=== PATIENT | male | born 1965 | race African-American/Black ===

== ENCOUNTER 2016-12-09 15:27 | Inpatient (IN) | payer MEDICAID, OTHER ==
[~2016-12-09] VITALS: Ht 193 cm; Wt 69.9 kg
[2016-12-09] VITALS (27 sets, daily range): BP systolic 102–180; BP diastolic 56–82
[2016-12-09] MEDS ORDERED: MORPHINE SULFATE 4 MG/ML CPJ (NOT FOR IM USE) IV STA (15:42)
[2016-12-09] MEDS ORDERED: ONDANSETRON HCL 4MG/2ML VIAL IV STA (15:42)
[2016-12-09] MEDS ORDERED: NITROGLYCERIN OINT 1GM/INCH UDPKT TD STA (15:42)
[2016-12-09] MEDS ORDERED: SODIUM CHLORIDE 0.9% 1,000 ML IV ONE ×3 (15:42→16:17)
[2016-12-09 16:13] LABS: BG BASE EXCESS -22.6 mmol/L (-2.0-2.0); BG CARBOXYHEMOGLOBIN 0.6 % (0.5-1.5); BG FRACTION INSPIRED OXYGEN 21; BG HCO3 ACT 4.6 mmol/L (22.0-26.0); BG METHEMOGLOBIN 0.2 % (0.0-1.5); BG OXYHEMOGLOBIN 97.2 % (94.0-97.0); BG PCO2 14.7 mmHg (35.0-45.0); BG PH 7.113 (7.350-7.450); BG PO2 129.2 mmHg (75.0-100.0); BG SAMPLE SITE RIGHT BRACHIAL; BG TOTAL HEMOGLOBIN 14.3 g/dL (12.0-18.0); BG VENT MODE ROOM AIR
[2016-12-09] MEDS ORDERED: INSULIN REGULAR (DRIP) 100 UNITS in SODIUM CHLORIDE 0.9% 100 ML IV ONE (16:15)
[2016-12-09] MEDS ORDERED: AZITHROMYCIN 500 MG in DEXT 5% WATER 250 ML IV STA (16:17)
[2016-12-09 16:22] LABS: BASOPHILS % 0.5 % (0.0-2.0); HEMATOCRIT. 45.3 % (42.0-52.0); LYMPHOCYTES % 12.9 % (20.0-50.0); MEAN CORPUSCULAR HEMOGLOBIN 28.3 pg (28.0-32.0); MEAN CORPUSCULAR VOLUME 91.6 fL (80.0-94.0); MEAN PLATELET VOLUME 10.4 fl (7.4-10.4); MONOCYTES % 6.5 % (2.0-8.0); NEUTROPHILS % 80.1 % (40.0-76.0); PLATELET 289 x1000/uL (130-400); RED BLOOD CELL COUNT 4.95 mill/uL (4.7-6.1); RED CELL DISTRIBUTION WIDTH 16.9 % (11.6-14.6)
[2016-12-09 16:29] LABS: PARTIAL THROMBOPLASTIN TIME 23.1 sec (23.4-31.0); PROTHROMBIN TIME 10.4 sec (9.4-11.6)
[2016-12-09] MEDS ORDERED: CEFTRIAXONE 1 G PREMIX 50 ML IV ONE (16:30)
[2016-12-09] MEDS ORDERED: INSULIN REGULAR (DRIP) 100 UNITS in SODIUM CHLORIDE 0.9% 100 ML IV NR (16:30)
[2016-12-09 17:02] LABS: CLARITY URINE CLEAR (CLEAR); COLOR URINE YELLOW (YELLOW); GLUCOSE URINE 3+ (NEGATIVE); KETONES URINE 4+ (NEGATIVE); LEUKOCYTE ESTERASE URINE NEGATIVE (NEGATIVE); NITRITE URINE NEGATIVE (NEGATIVE); OCCULT BLOOD URINE TRACE (NEGATIVE); PROTEIN URINE 1+ (NEGATIVE); SPECIFIC GRAVITY URINE 1.025 (1.005-1.030); UROBILINOGEN URINE 0.2 E.U./dL (0.2-1.0)
[2016-12-09 17:15] LABS: *AMPHETAMINES SCREEN URINE NEGATIVE (NEGATIVE); *BARBITURATES SCREEN URINE NEGATIVE (NEGATIVE); *BENZODIAZEPINES SCREEN URINE NEGATIVE (NEGATIVE); *COCAINE SCREEN URINE PRESUMTIVE POSITIVE (NEGATIVE); CANNABINOID URINE SCREEN NEGATIVE (NEGATIVE); METHADONE URINE SCREEN NEGATIVE (NEGATIVE); OPIATES URINE SCREEN NEGATIVE (NEGATIVE); PHENCYCLIDINE URINE SCREEN NEGATIVE (NEGATIVE)
[2016-12-09 17:22] LABS: CHLORIDE 98 mEq/L (98-107)
[2016-12-09 17:29] LABS: PHOSPHORUS 6.2 mg/dL (2.5-4.9); TROPONIN I < 0.02 ng/mL (0.00-0.04)
[2016-12-09 17:30] LABS: CREATINE KINASE 126 IU/L (39-308); CREATINE KINASE MB FRACTION 2.9 ng/mL (0.5-3.6)
[2016-12-09 17:38] LABS: CARBON DIOXIDE 9 mEq/L (21-32)
[2016-12-09 18:04] LABS: BETA HYDROXYBUTYRATE 14.8 mMol/L (0.0-0.3)
[2016-12-09] MEDS: SODIUM CHLORIDE 0.9% 1,000 ML IV SCH ×2 (18:30→23:15)
[2016-12-09] MEDS ORDERED: INSULIN REGULAR (DRIP) 100 UNITS in SODIUM CHLORIDE 0.9% 99 ML IV PRN (18:30)
[2016-12-09] MEDS ORDERED: ONDANSETRON HCL 4MG/2ML VIAL IV PRN (18:30)
[2016-12-09] MEDS ORDERED: MORPHINE SULFATE 4 MG/ML CPJ (NOT FOR IM USE) IV PRN (18:45)
[2016-12-09] MEDS: BLOOD SUGAR DIAGNOSTIC STRIP TEST SCH ×3 (20:40→23:16)
[2016-12-10] VITALS (67 sets, daily range): BP systolic 74–133; BP diastolic 49–95
[2016-12-10] MEDS: BLOOD SUGAR DIAGNOSTIC STRIP TEST SCH ×15 (00:54→14:18)
[2016-12-10 01:06] LABS: CHLORIDE 111 mEq/L (98-107)
[2016-12-10 01:15] LABS: CARBON DIOXIDE 18 mEq/L (21-32)
[2016-12-10] MEDS: DEXT 5%/0.45% NACL KCL 20MEQ/L 1,000 ML IV SCH ×2 (02:45→10:07)
[2016-12-10 06:03] LABS: CARBON DIOXIDE 16 mEq/L (21-32); CHLORIDE 108 mEq/L (98-107)
[2016-12-10] MEDS ORDERED: PANTOPRAZOLE SODIUM 40 MG/VIAL IV SCH (09:00)
[2016-12-10 11:00] LABS: CARBON DIOXIDE 24 mEq/L (21-32); CHLORIDE 106 mEq/L (98-107)
[2016-12-10] MEDS ORDERED: DEXTROSE 50% WATER 50ML SYRINGE IV PRN (14:30)
[2016-12-10] MEDS: INSULIN LISPRO 100 UNITS/ML SUBCUT SCH ×2 (14:55→17:21)
[2016-12-10] MEDS ORDERED: BLOOD SUGAR DIAGNOSTIC STRIP TEST SCH (16:30)
== END 2016-12-10 18:00 | disposition home or self-care (01) | DRG 420 ==
LOC: ER 15:41 → EDBEDREQSVC 16:15 → EDBEDREQ 16:16 → MICUNO 16:29 → EDBEDREQ 16:30 → EDBEDREQTM 16:30 → ENRESERV 16:40
PROVIDERS: ADMIT Internal Medicine; ATTEND Internal Medicine
DX: E10.10 Type 1 diabetes mellitus with ketoacidosis without coma (principal); E43 Unspecified severe protein-calorie malnutrition; F17.210 Nicotine dependence, cigarettes, uncomplicated; Z60.2 Problems related to living alone; Z91.19 Patient's noncompliance with other medical treatment and regimen; Z79.4 Long term (current) use of insulin; Z68.1 Body mass index [BMI] 19.9 or less, adult
CPT/HCPCS: 36415; 36600; 71010; 80048; 80053; 80305; 81001; 82010; 82375; 82550; 82553; 82805; 82962; 83605; 83690; 83735; 83880; 84100; 84484; 85025; 85610; 85730; 87040; 87086; 93005; 96361; 96374; 96375; 99291; C9113; J0456; J0696; J1815; J2270; J2405; J7030; J7050; J7060

== ENCOUNTER 2017-03-16 15:10 | Emergency (ER) | payer MEDICAID ==
[~2017-03-16] VITALS: Ht 177.8 cm; Wt 70.0 kg
[2017-03-16] MEDS ORDERED: SODIUM CHLORIDE 0.9% 1,000 ML IV ONE (17:50)
[2017-03-16 18:33] LABS: BASOPHILS % 0.5 % (0.0-2.0); EOSINOPHILS % 0.4 % (0.0-5.0); HEMATOCRIT. 48.6 % (42.0-52.0); HEMOGLOBIN. 15.9 g/dL (14.0-18.0); LYMPHOCYTES % 11.6 % (20.0-50.0); MEAN CORPUSCULAR HEMOGLOBIN 28.9 pg (28.0-32.0); MEAN CORPUSCULAR VOLUME 88.5 fL (80.0-94.0); MEAN PLATELET VOLUME 9.3 fl (7.4-10.4); MONOCYTES % 3.6 % (2.0-8.0); NEUTROPHILS % 83.9 % (40.0-76.0); PLATELET 318 x1000/uL (130-400); RED BLOOD CELL COUNT 5.49 mill/uL (4.7-6.1); RED CELL DISTRIBUTION WIDTH 13.1 % (11.6-14.6)
[2017-03-16 18:34] LABS: CLARITY URINE CLEAR (CLEAR); COLOR URINE YELLOW (YELLOW); KETONES URINE TRACE (NEGATIVE); LEUKOCYTE ESTERASE URINE NEGATIVE (NEGATIVE); NITRITE URINE NEGATIVE (NEGATIVE); OCCULT BLOOD URINE NEGATIVE (NEGATIVE); PH URINE 5.5 (4.5-8.0); PROTEIN URINE TRACE (NEGATIVE); SPECIFIC GRAVITY URINE 1.042 (1.005-1.030); UROBILINOGEN URINE 0.2 E.U./dL (0.2-1.0)
[2017-03-16 18:47] LABS: CHLORIDE 101 mEq/L (98-107)
[2017-03-16 18:48] LABS: AMYLASE 69 IU/L (25-115); BETA HYDROXYBUTYRATE 1.7 mMol/L (0.0-0.3)
[2017-03-16 18:50] LABS: *AMPHETAMINES SCREEN URINE NEGATIVE (NEGATIVE); *BARBITURATES SCREEN URINE NEGATIVE (NEGATIVE); *BENZODIAZEPINES SCREEN URINE NEGATIVE (NEGATIVE); *COCAINE SCREEN URINE PRESUMTIVE POSITIVE (NEGATIVE); CANNABINOID URINE SCREEN NEGATIVE (NEGATIVE); METHADONE URINE SCREEN NEGATIVE (NEGATIVE); OPIATES URINE SCREEN NEGATIVE (NEGATIVE); PHENCYCLIDINE URINE SCREEN NEGATIVE (NEGATIVE)
[2017-03-16] MEDS ORDERED: INSULIN REGULAR (HUMULIN R) 300UNITS/3ML SUBCUT ONE (20:45)
[2017-03-16] MEDS ORDERED: INSULIN REGULAR (HUMULIN R) 300UNITS/3ML IV ONE (20:45)
[2017-03-16 21:49] LABS: BG BASE EXCESS 0.1 mmol/L (-2.0-2.0); BG CARBOXYHEMOGLOBIN 1.2 % (0.5-1.5); BG DEOXYHEMOGLOBIN 3.1 % (0.0-5.0); BG FRACTION INSPIRED OXYGEN 21; BG HCO3 ACT 23.9 mmol/L (22.0-26.0); BG METHEMOGLOBIN 0.4 % (0.0-1.5); BG OXYGEN SATURATION 96.8 % (92.0-98.5); BG OXYHEMOGLOBIN 95.3 % (94.0-97.0); BG PCO2 36.4 mmHg (35.0-45.0); BG PH 7.435 (7.350-7.450); BG PO2 81.8 mmHg (75.0-100.0); BG SAMPLE SITE RIGHT BRACHIAL; BG TOTAL HEMOGLOBIN 15.7 g/dL (12.0-18.0); BG VENT MODE ROOM AIR
[2017-03-16 23:10] VITALS: BP 122/76
== END 2017-03-16 23:10 | disposition home or self-care (01) ==
LOC: ER 15:18
DX: E11.10 Type 2 diabetes mellitus with ketoacidosis without coma (principal); Z79.4 Long term (current) use of insulin; Z91.19 Patient's noncompliance with other medical treatment and regimen
CPT/HCPCS: 36415; 36600; 71045; 80053; 80305; 81001; 82010; 82150; 82375; 82805; 82962; 83690; 85025; 93005; 96361; 96372; 96374; 99285; J1815; J7030

== ENCOUNTER 2017-03-16 23:44 | Emergency (ER) | payer MEDICAID ==
[~2017-03-16] VITALS: Ht 193 cm; Wt 82.0 kg
[2017-03-17 09:17] VITALS: BP 117/88
== END 2017-03-17 09:18 | disposition home or self-care (01) ==
LOC: ER 23:44
DX: E11.65 Type 2 diabetes mellitus with hyperglycemia (principal)
CPT/HCPCS: 82962; 99283

== ENCOUNTER 2018-05-08 14:44 | Inpatient (IN) | payer MEDICAID ==
[~2018-05-08] VITALS: Ht 193 cm; Wt 83.9 kg
[2018-05-08] MEDS ORDERED: SODIUM CHLORIDE 0.9% 1,000 ML IV ONE (15:37)
[2018-05-08 16:08] LABS: BASOPHILS % 0.5 % (0.0-2.0); HEMATOCRIT. 37.1 % (42.0-52.0); HEMOGLOBIN. 11.4 g/dL (14.0-18.0); LYMPHOCYTES % 9.3 % (20.0-50.0); MEAN CORPUSCULAR HEMOGLOBIN 29.4 pg (28.0-32.0); MEAN CORPUSCULAR VOLUME 95.6 fL (80.0-94.0); MEAN PLATELET VOLUME 9.4 fl (7.4-10.4); MONOCYTES % 5.5 % (2.0-8.0); NEUTROPHILS % 84.7 % (40.0-76.0); PLATELET 343 x1000/uL (130-400); RED BLOOD CELL COUNT 3.88 mill/uL (4.7-6.1); RED CELL DISTRIBUTION WIDTH 17.2 % (11.6-14.6)
[2018-05-08 16:13] LABS: CHLORIDE 94 mEq/L (98-107); PROTHROMBIN TIME 10.5 sec (9.1-11.1)
[2018-05-08 16:25] LABS: BETA HYDROXYBUTYRATE 9.1 mMol/L (0.0-0.3)
[2018-05-08] MEDS ORDERED: INSULIN REGULAR (DRIP) 100 UNITS in SODIUM CHLORIDE 0.9% 100 ML IV ONE (16:29)
[2018-05-08] MEDS ORDERED: SODIUM CHLORIDE 0.9% 1,000 ML IV STA (16:29)
[2018-05-08] MEDS ORDERED: FUROSEMIDE 100MG/10ML VIAL IV ONE (16:30)
[2018-05-08] MEDS ORDERED: ALBUTEROL (0.083%) 2.5MG/3ML NEB HHN SCH (16:30)
[2018-05-08] MEDS ORDERED: SODIUM POLYSTYRENE SULFONATE 15 G/60 ML BOT PO ONE (16:30)
[2018-05-08] MEDS ORDERED: CALCIUM GLUCONATE 1,000 MG in DEXT 5% WATER 100 ML IV NR (17:00)
[2018-05-08 17:10] LABS: CLARITY URINE CLEAR (CLEAR); COLOR URINE YELLOW (YELLOW); KETONES URINE 3+ (NEGATIVE); LEUKOCYTE ESTERASE URINE NEGATIVE (NEGATIVE); NITRITE URINE NEGATIVE (NEGATIVE); OCCULT BLOOD URINE NEGATIVE (NEGATIVE); PROTEIN URINE NEGATIVE (NEGATIVE); SPECIFIC GRAVITY URINE 1.025 (1.005-1.030); UROBILINOGEN URINE 0.2 E.U./dL (0.2-1.0)
[2018-05-08 18:10] LABS: BG BASE EXCESS -20.4 mmol/L (-2.0-2.0); BG CARBOXYHEMOGLOBIN 1.1 % (0.5-1.5); BG FRACTION INSPIRED OXYGEN 21; BG HCO3 ACT 6.9 mmol/L (22.0-26.0); BG METHEMOGLOBIN 0.4 % (0.0-1.5); BG OXYHEMOGLOBIN 95.5 % (94.0-97.0); BG PCO2 21.4 mmHg (35.0-45.0); BG PH 7.129 (7.350-7.450); BG PO2 112.2 mmHg (75.0-100.0); BG SAMPLE SITE RIGHT RADIAL; BG TOTAL HEMOGLOBIN 13.1 g/dL (12.0-18.0); BG VENT MODE ROOM AIR
[2018-05-08 18:21] LABS: CHLORIDE 101 mEq/L (98-107)
[2018-05-08 18:27] LABS: PHOSPHORUS 6.8 mg/dL (2.5-4.9)
[2018-05-08] MEDS ORDERED: ACETAMINOPHEN 325MG TABLET PO PRN (18:30)
[2018-05-08] MEDS ORDERED: IPRATROPIUM/ALBUTEROL 0.5-3(2.5)MG/3ML NEB INH PRN (18:30)
[2018-05-08] MEDS ORDERED: CLONIDINE 0.1MG TABLET PO PRN (18:30)
[2018-05-08] MEDS ORDERED: INSULIN REGULAR (DRIP) 100 UNITS in SODIUM CHLORIDE 0.9% 100 ML IV SCH (18:30)
[2018-05-08] MEDS ORDERED: ONDANSETRON HCL 4MG/2ML INJ IV PRN (18:30)
[2018-05-08] MEDS ORDERED: DOCUSATE SODIUM 100MG CAPSULE PO PRN (18:30)
[2018-05-08 19:35] LABS: FOLIC ACID (FOLATE) SERUM >20 ng/mL ng/mL (>5.38)
[2018-05-08 19:37] LABS: FERRITIN 75 ng/mL (22-322)
[2018-05-08 19:44] LABS: CREATINE KINASE MB FRACTION 2.4 ng/mL (0.5-3.6)
[2018-05-08 19:47] LABS: VITAMIN B12 SERUM 461 pg/mL (211-911)
[2018-05-08 21:25] LABS: CHLORIDE 104 mEq/L (98-107)
[2018-05-08 21:30] LABS: PHOSPHORUS 3.8 mg/dL (2.5-4.9)
[2018-05-08 23:29] LABS: CHLORIDE 104 mEq/L (98-107)
[2018-05-09] MEDS ORDERED: LORAZEPAM 0.5MG TABLET PO PRN (00:50)
[2018-05-09] MEDS ORDERED: INSULIN GLARGINE UD 100 UNITS/ML SYR SUBCUT SCH ×2 (01:00→22:00)
[2018-05-09] MEDS ORDERED: DEXTROSE 50% WATER 50ML SYRINGE IV PRN (01:00)
[2018-05-09 05:30] VITALS: BP 112/67
[2018-05-09 06:00] VITALS: BP_SYST 112
[2018-05-09] MEDS: HYDROCODONE/ACETAMINOPHEN 5/325MG TABLET PO PRN ×2 (08:03→21:10)
[2018-05-09 08:16] LABS: *BENZODIAZEPINES SCREEN URINE NEGATIVE (NEGATIVE); *COCAINE SCREEN URINE PRESUMTIVE POSITIVE (NEGATIVE); METHADONE URINE SCREEN NEGATIVE (NEGATIVE); OPIATES URINE SCREEN NEGATIVE (NEGATIVE); PHENCYCLIDINE URINE SCREEN NEGATIVE (NEGATIVE)
[2018-05-09] MEDS: INSULIN LISPRO (HIGH DOSE) 100 UNITS/ML SUBCUT SCH ×4 (08:16→21:19)
[2018-05-09 08:17] LABS: *AMPHETAMINES SCREEN URINE NEGATIVE (NEGATIVE); *BARBITURATES SCREEN URINE NEGATIVE (NEGATIVE); CANNABINOID URINE SCREEN NEGATIVE (NEGATIVE)
[2018-05-09 08:59] LABS: BASOPHILS % 0.7 % (0.0-2.0); EOSINOPHILS % 0.5 % (0.0-5.0); HEMATOCRIT. 34.2 % (42.0-52.0); HEMOGLOBIN. 11.1 g/dL (14.0-18.0); LYMPHOCYTES % 24.7 % (20.0-50.0); MEAN CORPUSCULAR HEMOGLOBIN 28.7 pg (28.0-32.0); MEAN CORPUSCULAR VOLUME 88.6 fL (80.0-94.0); MEAN PLATELET VOLUME 9.2 fl (7.4-10.4); MONOCYTES % 8.3 % (2.0-8.0); NEUTROPHILS % 65.8 % (40.0-76.0); PLATELET 330 x1000/uL (130-400); RED BLOOD CELL COUNT 3.86 mill/uL (4.7-6.1); RED CELL DISTRIBUTION WIDTH 16.2 % (11.6-14.6)
[2018-05-09] MEDS: BLOOD SUGAR DIAGNOSTIC STRIP TEST SCH ×3 (12:00→20:00)
[2018-05-09] MEDS: SODIUM CHLORIDE 0.9% 1,000 ML IV SCH ×3 (15:30→23:30)
[2018-05-09] MEDS: ARIPIPRAZOLE 10MG TABLET PO SCH (17:44)
[2018-05-09 20:00] VITALS: BP 113/78
[2018-05-09] MEDS: QUETIAPINE FUMARATE 25MG TABLET PO SCH (21:10)
[2018-05-09] MEDS: INSULIN GLARGINE UD 100 UNITS/ML SYR SUBCUT SCH (21:20)
[2018-05-10] VITALS (8 sets, daily range): BP systolic 112–150; BP diastolic 67–84
[2018-05-10] MEDS: SODIUM CHLORIDE 0.9% 1,000 ML IV SCH ×2 (04:17→13:23)
[2018-05-10] MEDS: INSULIN LISPRO (HIGH DOSE) 100 UNITS/ML SUBCUT SCH ×6 (04:22→20:00)
[2018-05-10] MEDS: BLOOD SUGAR DIAGNOSTIC STRIP TEST SCH ×6 (04:23→20:54)
[2018-05-10] MEDS: HYDROCODONE/ACETAMINOPHEN 5/325MG TABLET PO PRN ×3 (04:51→21:32)
[2018-05-10 06:30] LABS: BASOPHILS % 0.9 % (0.0-2.0); EOSINOPHILS % 0.9 % (0.0-5.0); HEMATOCRIT. 33.1 % (42.0-52.0); HEMOGLOBIN. 10.8 g/dL (14.0-18.0); LYMPHOCYTES % 54.5 % (20.0-50.0); MEAN CORPUSCULAR HEMOGLOBIN 28.7 pg (28.0-32.0); MEAN CORPUSCULAR VOLUME 87.7 fL (80.0-94.0); MEAN PLATELET VOLUME 8.4 fl (7.4-10.4); MONOCYTES % 6.4 % (2.0-8.0); NEUTROPHILS % 37.3 % (40.0-76.0); PLATELET 323 x1000/uL (130-400); RED BLOOD CELL COUNT 3.77 mill/uL (4.7-6.1); RED CELL DISTRIBUTION WIDTH 15.7 % (11.6-14.6)
[2018-05-10 07:48] LABS: CHLORIDE 106 mEq/L (98-107)
[2018-05-10] MEDS: QUETIAPINE FUMARATE 25MG TABLET PO SCH ×2 (09:18→20:48)
[2018-05-10] MEDS: ARIPIPRAZOLE 10MG TABLET PO SCH (09:18)
[2018-05-10] MEDS ORDERED: POTASSIUM CHLORIDE 20MEQ TABLET SR PO NR (21:00)
[2018-05-10] MEDS: INSULIN GLARGINE UD 100 UNITS/ML SYR SUBCUT SCH (21:29)
[2018-05-11] VITALS: BP 127/74
[2018-05-11 04:00] VITALS: BP 133/72
[2018-05-11] MEDS: BLOOD SUGAR DIAGNOSTIC STRIP TEST SCH ×3 (04:00→12:31)
[2018-05-11] MEDS: INSULIN LISPRO (HIGH DOSE) 100 UNITS/ML SUBCUT SCH ×3 (05:40→12:00)
[2018-05-11] MEDS: SODIUM CHLORIDE 0.9% 1,000 ML IV SCH (05:42)
[2018-05-11 05:58] LABS: BASOPHILS % 0.6 % (0.0-2.0); EOSINOPHILS % 0.9 % (0.0-5.0); HEMATOCRIT. 35.3 % (42.0-52.0); HEMOGLOBIN. 11.3 g/dL (14.0-18.0); MEAN CORPUSCULAR HEMOGLOBIN 28.5 pg (28.0-32.0); MEAN CORPUSCULAR VOLUME 88.6 fL (80.0-94.0); MEAN PLATELET VOLUME 8.9 fl (7.4-10.4); MONOCYTES % 7.9 % (2.0-8.0); NEUTROPHILS % 39.6 % (40.0-76.0); PLATELET 293 x1000/uL (130-400); RED BLOOD CELL COUNT 3.99 mill/uL (4.7-6.1); RED CELL DISTRIBUTION WIDTH 15.7 % (11.6-14.6)
[2018-05-11 06:58] LABS: CHLORIDE 102 mEq/L (98-107)
[2018-05-11 08:00] VITALS: BP 155/85
[2018-05-11] MEDS: QUETIAPINE FUMARATE 25MG TABLET PO SCH (08:49)
[2018-05-11] MEDS: ARIPIPRAZOLE 10MG TABLET PO SCH (08:49)
[2018-05-11] MEDS: HYDROCODONE/ACETAMINOPHEN 5/325MG TABLET PO PRN (08:50)
[2018-05-11 12:00] VITALS: BP 110/70
[2018-05-11 14:57] VITALS: BP 110/70
[2018-05-11 16:00] VITALS: BP 123/83
== END 2018-05-11 18:00 | disposition home health service (06) | DRG 420 ==
LOC: ER 14:44 → 6EST 16:44 → EDBEDREQSVC 05-09 00:09 → ENRESERV 05-09 04:18
PROVIDERS: ADMIT Internal Medicine; ATTEND Internal Medicine
DX: E10.10 Type 1 diabetes mellitus with ketoacidosis without coma (principal); J96.00 Acute respiratory failure, unspecified whether with hypoxia or hypercapnia; E87.5 Hyperkalemia; E87.1 Hypo-osmolality and hyponatremia; D53.9 Nutritional anemia, unspecified; Z96.642 Presence of left artificial hip joint; I10 Essential (primary) hypertension; F20.9 Schizophrenia, unspecified; F41.9 Anxiety disorder, unspecified
CPT/HCPCS: 36415; 36600; 71045; 73502; 80048; 80305; 82010; 82375; 82550; 82553; 82607; 82728; 82746; 82805; 82962; 83036; 83540; 83550; 83605; 83735; 83880; 84100; 84484; 93005; 94640; 96365; 96366; 96368; 96375; 97116; 97162; 97530; 99291; J0610; J1815; J1940; J7030; J7050; J7060; J7611

== ENCOUNTER 2018-09-09 13:05 | Inpatient (IN) | payer MEDICAID ==
[~2018-09-09] VITALS: Ht 167.6 cm; Wt 71.9 kg
[2018-09-09] VITALS (20 sets, daily range): BP systolic 100–142; BP diastolic 52–75
[2018-09-09] MEDS ORDERED: SODIUM CHLORIDE 0.9% 1,000 ML IV ONE (13:30)
[2018-09-09] MEDS ORDERED: ONDANSETRON HCL 4MG/2ML INJ IV STA (13:30)
[2018-09-09] MEDS ORDERED: MORPHINE SULFATE 4 MG/ML CPJ (NOT FOR IM USE) IV STA (13:30)
[2018-09-09] MEDS ORDERED: FAMOTIDINE 20MG/2ML VIAL IV STA (13:30)
[2018-09-09 14:07] LABS: CLARITY URINE CLEAR (CLEAR); COLOR URINE YELLOW (YELLOW); HEMOGLOBIN. 10.3 g/dL (14.0-18.0); KETONES URINE 3+ (NEGATIVE); LEUKOCYTE ESTERASE URINE NEGATIVE (NEGATIVE); MEAN CORPUSCULAR HEMOGLOBIN 29.1 pg (28.0-32.0); MEAN CORPUSCULAR VOLUME 101.3 fL (80.0-94.0); MEAN PLATELET VOLUME 8.2 fl (7.4-10.4); NITRITE URINE NEGATIVE (NEGATIVE); OCCULT BLOOD URINE TRACE (NEGATIVE); PLATELET 733 x1000/uL (130-400); PROTEIN URINE NEGATIVE (NEGATIVE); RED BLOOD CELL COUNT 3.55 mill/uL (4.7-6.1); RED CELL DISTRIBUTION WIDTH 15.5 % (11.6-14.6); SPECIFIC GRAVITY URINE 1.023 (1.005-1.030); UROBILINOGEN URINE 0.2 E.U./dL (0.2-1.0)
[2018-09-09 14:23] LABS: *AMPHETAMINES SCREEN URINE NEGATIVE (NEGATIVE); *BARBITURATES SCREEN URINE NEGATIVE (NEGATIVE); *BENZODIAZEPINES SCREEN URINE NEGATIVE (NEGATIVE); *COCAINE SCREEN URINE PRESUMTIVE POSITIVE (NEGATIVE); CANNABINOID URINE SCREEN NEGATIVE (NEGATIVE); METHADONE URINE SCREEN NEGATIVE (NEGATIVE); OPIATES URINE SCREEN NEGATIVE (NEGATIVE); PHENCYCLIDINE URINE SCREEN NEGATIVE (NEGATIVE)
[2018-09-09 14:26] LABS: ETHANOL BLOOD < 10 mg/dL
[2018-09-09] MEDS ORDERED: INSULIN REGULAR (HUMULIN R) 300UNITS/3ML SUBCUT ONE (14:30)
[2018-09-09] MEDS ORDERED: SODIUM CHLORIDE 0.9% 1000ML BAG (SEPSIS BOLUS) IV ONE (14:30)
[2018-09-09 14:37] LABS: NUCLEATED RED BLOOD CELLS 1 /100 WBC
[2018-09-09 14:38] LABS: PLATELET ESTIMATE INCREASED
[2018-09-09 14:55] LABS: BG BASE EXCESS -26.4 mmol/L (-2.0-2.0); BG CARBOXYHEMOGLOBIN 0.3 % (0.5-1.5); BG DEOXYHEMOGLOBIN 2.2 % (0.0-5.0); BG FRACTION INSPIRED OXYGEN 32; BG HCO3 ACT 2.3 mmol/L (22.0-26.0); BG METHEMOGLOBIN 0.3 % (0.0-1.5); BG OXYGEN SATURATION 97.8 % (92.0-98.5); BG OXYHEMOGLOBIN 97.2 % (94.0-97.0); BG PCO2 8.9 mmHg (35.0-45.0); BG PH 7.028 (7.350-7.450); BG PO2 149.2 mmHg (75.0-100.0); BG SAMPLE SITE LEFT BRACHIAL; BG TOTAL HEMOGLOBIN 10.1 g/dL (12.0-18.0); BG VENT MODE NASAL CANNULA
[2018-09-09] MEDS ORDERED: VANCOMYCIN 1 G PREMIX 200 ML IV SCH (16:00)
[2018-09-09] MEDS ORDERED: PIPERACILLIN/TAZ 3.375G PREMIX 50 ML IV ONE (16:00)
[2018-09-09 16:14] LABS: CHLORIDE 102 mEq/L (98-107)
[2018-09-09 16:19] LABS: ETHANOL BLOOD < 10 mg/dL
[2018-09-09] MEDS ORDERED: SODIUM CHLORIDE 0.9% 1,000 ML IV STA (16:22)
[2018-09-09] MEDS ORDERED: SODIUM BICARBONATE 8.4% 1 MEQ/ML 50ML SYR IV ONE (16:30)
[2018-09-09] MEDS ORDERED: INSULIN REGULAR (HUMULIN R) 300UNITS/3ML IV ONE (16:30)
[2018-09-09] MEDS ORDERED: ALBUTEROL (0.083%) 2.5MG/3ML NEB HHN ONE (16:30)
[2018-09-09] MEDS ORDERED: SODIUM POLYSTYRENE SULFONATE 15 G/60 ML BOT PO ONE (16:30)
[2018-09-09] MEDS ORDERED: INSULIN REGULAR (DRIP) 100 UNITS in SODIUM CHLORIDE 0.9% 99 ML IV SCH ×2 (16:45→20:11)
[2018-09-09 17:03] LABS: BETA HYDROXYBUTYRATE 14.5 mMol/L (0.0-0.3)
[2018-09-09] MEDS ORDERED: MORPHINE SULFATE 2 MG/ML CPJ (NOT FOR IM USE) IV PRN (18:00)
[2018-09-09] MEDS ORDERED: LORAZEPAM 2MG/ML CPJ IV PRN (18:00)
[2018-09-09] MEDS ORDERED: DIPHENHYDRAMINE 50MG/ML VIAL IV PRN (18:00)
[2018-09-09] MEDS ORDERED: ONDANSETRON HCL 4MG/2ML INJ IV PRN (18:00)
[2018-09-09] MEDS ORDERED: INSULIN REGULAR (DRIP) 100 UNITS in SODIUM CHLORIDE 0.9% 100 ML IV ONE ×2 (18:00→18:42)
[2018-09-09] MEDS: SODIUM CHLORIDE 0.9% 1,000 ML IV SCH ×2 (18:50→21:57)
[2018-09-09] MEDS ORDERED: DEXTROSE 50% WATER 50ML SYRINGE IV PRN ×2 (20:15)
[2018-09-09 20:53] LABS: CHLORIDE 117 mEq/L (98-107)
[2018-09-09 21:00] LABS: PHOSPHORUS 2.8 mg/dL (2.5-4.9)
[2018-09-09] MEDS ORDERED: DEXT 5%/0.9% NACL 1,000 ML IV PRN (21:00)
[2018-09-09] MEDS: BLOOD SUGAR DIAGNOSTIC STRIP TEST SCH ×3 (21:31→23:02)
[2018-09-09] MEDS: DEXT 5%/0.45% NACL 1000ML 1,000 ML IV SCH (23:18)
[2018-09-10] VITALS (63 sets, daily range): BP systolic 115–161; BP diastolic 62–98
[2018-09-10 00:11] LABS: CHLORIDE 121 mEq/L (98-107)
[2018-09-10 00:16] LABS: PHOSPHORUS 1.8 mg/dL (2.5-4.9)
[2018-09-10] MEDS: BLOOD SUGAR DIAGNOSTIC STRIP TEST SCH ×15 (01:00→20:57)
[2018-09-10] MEDS: SODIUM CHLORIDE 0.9% 1,000 ML IV SCH ×6 (01:57→21:07)
[2018-09-10] MEDS ORDERED: INSU100I28 SQ (03:05)
[2018-09-10] MEDS ORDERED: INSU100I32 SQ (03:05)
[2018-09-10 05:43] LABS: BASOPHILS % 0.4 % (0.0-2.0); CHLORIDE 119 mEq/L (98-107); EOSINOPHILS % 0.1 % (0.0-5.0); HEMATOCRIT. 28.3 % (42.0-52.0); HEMOGLOBIN. 9.2 g/dL (14.0-18.0); LYMPHOCYTES % 15.1 % (20.0-50.0); MEAN PLATELET VOLUME 7.2 fl (7.4-10.4); MONOCYTES % 14.3 % (2.0-8.0); NEUTROPHILS % 70.1 % (40.0-76.0); PLATELET 660 x1000/uL (130-400); RED BLOOD CELL COUNT 3.18 mill/uL (4.7-6.1); RED CELL DISTRIBUTION WIDTH 14.1 % (11.6-14.6)
[2018-09-10 05:46] LABS: PHOSPHORUS 3.2 mg/dL (2.5-4.9)
[2018-09-10] MEDS: DEXT 5%/0.45% NACL 1000ML 1,000 ML IV SCH ×2 (05:56→12:55)
[2018-09-10] MEDS ORDERED: FAMOTIDINE 20MG/2ML VIAL IV SCH (09:00)
[2018-09-10] MEDS ORDERED: DEXTROSE 50% WATER 50ML SYRINGE IV PRN (13:15)
[2018-09-10] MEDS ORDERED: LORAZEPAM 1MG TABLET PO PRN (13:15)
[2018-09-10] MEDS: INSULIN GLARGINE UD 100 UNITS/ML SYR SUBCUT SCH (14:32)
[2018-09-10] MEDS: INSULIN LISPRO 100 UNITS/ML SUBCUT SCH ×2 (18:00→21:02)
[2018-09-10] MEDS ORDERED: TEMAZEPAM 15MG CAPSULE PO PRN (21:00)
[2018-09-10] MEDS: QUETIAPINE FUMARATE 25MG TABLET PO SCH (21:03)
[2018-09-10] MEDS: FAMOTIDINE 20MG TABLET PO SCH (21:03)
[2018-09-11] VITALS (25 sets, daily range): BP systolic 109–165; BP diastolic 63–95
[2018-09-11] MEDS: SODIUM CHLORIDE 0.9% 1,000 ML IV SCH ×2 (01:57→09:57)
[2018-09-11 05:46] LABS: BASOPHILS % 0.5 % (0.0-2.0); EOSINOPHILS % 0.7 % (0.0-5.0); HEMATOCRIT. 26.5 % (42.0-52.0); HEMOGLOBIN. 8.8 g/dL (14.0-18.0); LYMPHOCYTES % 30.7 % (20.0-50.0); MEAN CORPUSCULAR HEMOGLOBIN 29.4 pg (28.0-32.0); MEAN CORPUSCULAR VOLUME 88.8 fL (80.0-94.0); MEAN PLATELET VOLUME 7.2 fl (7.4-10.4); MONOCYTES % 6.5 % (2.0-8.0); NEUTROPHILS % 61.6 % (40.0-76.0); PLATELET 499 x1000/uL (130-400); RED BLOOD CELL COUNT 2.99 mill/uL (4.7-6.1); RED CELL DISTRIBUTION WIDTH 14.1 % (11.6-14.6)
[2018-09-11 06:05] LABS: CHLORIDE 109 mEq/L (98-107)
[2018-09-11] MEDS: BLOOD SUGAR DIAGNOSTIC STRIP TEST SCH ×4 (07:50→20:45)
[2018-09-11] MEDS: FAMOTIDINE 20MG TABLET PO SCH ×2 (08:11→20:35)
[2018-09-11] MEDS: QUETIAPINE FUMARATE 25MG TABLET PO SCH ×2 (08:11→20:36)
[2018-09-11] MEDS: INSULIN LISPRO 100 UNITS/ML SUBCUT SCH ×4 (08:12→20:45)
[2018-09-11] MEDS ORDERED: POTASSIUM CHLORIDE 20MEQ TABLET SR PO NR ×2 (09:00→13:00)
[2018-09-11] MEDS ORDERED: POTASSIUM PHOS,M-BASIC-D-BASIC 20 MMOL in DEXT 5% WATER 243.3333 ML IV NR (10:00)
[2018-09-11] MEDS: INSULIN GLARGINE UD 100 UNITS/ML SYR SUBCUT SCH (10:27)
[2018-09-11] MEDS: ACETAMINOPHEN 325MG TABLET PO PRN (20:36)
[2018-09-12] VITALS: BP 109/74
[2018-09-12 04:00] VITALS: BP 116/78
[2018-09-12] MEDS: BLOOD SUGAR DIAGNOSTIC STRIP TEST SCH ×3 (06:48→17:18)
[2018-09-12] MEDS: INSULIN LISPRO 100 UNITS/ML SUBCUT SCH ×2 (06:50→12:11)
[2018-09-12 08:00] VITALS: BP 130/84
[2018-09-12] MEDS: FAMOTIDINE 20MG TABLET PO SCH (08:23)
[2018-09-12] MEDS: QUETIAPINE FUMARATE 25MG TABLET PO SCH (08:23)
[2018-09-12 12:00] VITALS: BP 138/80
[2018-09-12] MEDS: INSULIN GLARGINE UD 100 UNITS/ML SYR SUBCUT SCH (12:06)
[2018-09-12] MEDS: ACETAMINOPHEN 325MG TABLET PO PRN (12:35)
[2018-09-12 15:15] VITALS: BP 125/63
[2018-09-12 16:00] VITALS: BP 123/79
== END 2018-09-12 18:00 | disposition home or self-care (01) | DRG 420 ==
LOC: ER 13:05 → CVICU 15:59 → EDBEDREQ 16:11 → ENRESERV 16:44 → 6EST 09-11 11:50
PROVIDERS: ADMIT Internal Medicine; ATTEND Internal Medicine
DX: E11.10 Type 2 diabetes mellitus with ketoacidosis without coma (principal); G93.41 Metabolic encephalopathy; N17.9 Acute kidney failure, unspecified; R65.10 Systemic inflammatory response syndrome (SIRS) of non-infectious origin without acute organ dysfunction; E87.5 Hyperkalemia; E86.0 Dehydration; F14.10 Cocaine abuse, uncomplicated; F10.20 Alcohol dependence, uncomplicated
CPT/HCPCS: 36415; 36600; 71045; 80048; 80051; 80305; 80320; 81003; 82010; 82375; 82805; 82962; 83605; 83735; 83880; 84100; 84484; 93005; 94640; 99285; J1815; J2270; J2405; J2543; J3370; J3490; J7030; J7050; J7060; J7611; G0480

== ENCOUNTER → 2018-10-20 | Emergency (ER) | payer MEDICAID ==
[~2018-10-20] VITALS: Ht 185.4 cm; Wt 78.0 kg
[~2018-10-20] MED LIST: ACETAMINOPHEN 325MG TABLET PO PRN; ARIPIPRAZOLE 10MG TABLET PO SCH; ASPIRIN 81MG EC TABLET PO SCH; ASPIRIN 81MG TABLET PO ONE; BLOOD SUGAR DIAGNOSTIC STRIP TEST SCH; CLONIDINE 0.1MG TABLET PO PRN; DEXTROSE 50% WATER 50ML SYRINGE IV PRN; DIPHENHYDRAMINE 50MG/ML VIAL IV PRN; DOCUSATE SODIUM 100MG CAPSULE PO PRN; ENOXAPARIN 40MG/0.4ML SYR SUBCUT NR; ENOXAPARIN 40MG/0.4ML SYR SUBCUT SCH; GUAIFENESIN 200MG/10ML SUGAR FREE UDC PO PRN; HYDROCODONE/ACETAMINOPHEN 5/325MG TABLET PO PRN; INSU100I28 SQ; INSU100I32 SQ; INSULIN GLARGINE UD 100 UNITS/ML SYR SUBCUT SCH; INSULIN LISPRO (HIGH DOSE) 100 UNITS/ML SUBCUT SCH; INSULIN REGULAR (DRIP) 100 UNITS in SODIUM CHLORIDE 0.9% 100 ML IV SCH; INSULIN REGULAR (DRIP) 100 UNITS in SODIUM CHLORIDE 0.9% 99 ML IV SCH; IPRATROPIUM/ALBUTEROL 0.5-3(2.5)MG/3ML NEB NEB PRN; LORAZEPAM 2MG/ML CPJ IV PRN; MAGNESIUM/ALUMINUM HYDROXIDE/SIMETHICONE 30ML UDC PO PRN; MORPHINE SULFATE 2 MG/ML CPJ (NOT FOR IM USE) IV PRN; NA PHOS,M-B/NA PHOS,DI-BA ENEMA 118ML PR PRN; ONDANSETRON HCL 4MG/2ML INJ IV PRN; QUETIAPINE FUMARATE 50MG TABLET PO SCH; SODIUM CHLORIDE 0.45% 1,000 ML IV SCH; SODIUM CHLORIDE 0.9% 1,000 ML IV ONE
[2018-10-20 23:44] LABS: BASOPHILS % 0.4 % (0.0-2.0); HEMATOCRIT. 37.5 % (42.0-52.0); HEMOGLOBIN. 11.7 g/dL (14.0-18.0); LYMPHOCYTES % 16.4 % (20.0-50.0); MEAN CORPUSCULAR HEMOGLOBIN 28.7 pg (28.0-32.0); MEAN CORPUSCULAR VOLUME 92.3 fL (80.0-94.0); MEAN PLATELET VOLUME 9.1 fl (7.4-10.4); MONOCYTES % 7.3 % (2.0-8.0); NEUTROPHILS % 75.9 % (40.0-76.0); PLATELET 398 x1000/uL (130-400); RED BLOOD CELL COUNT 4.06 mill/uL (4.7-6.1); RED CELL DISTRIBUTION WIDTH 16.5 % (11.6-14.6)
[2018-10-20 23:45] LABS: CHLORIDE 100 mEq/L (98-107)
[2018-10-20 23:51] LABS: ETHANOL BLOOD < 10 mg/dL
[2018-10-20 23:59] LABS: BETA HYDROXYBUTYRATE 7.2 mMol/L (0.0-0.3)
[2018-10-21 02:52] LABS: *AMPHETAMINES SCREEN URINE NEGATIVE (NEGATIVE); *BARBITURATES SCREEN URINE NEGATIVE (NEGATIVE); *BENZODIAZEPINES SCREEN URINE NEGATIVE (NEGATIVE)
[2018-10-21 02:53] LABS: *COCAINE SCREEN URINE PRESUMTIVE POSITIVE (NEGATIVE); CANNABINOID URINE SCREEN NEGATIVE (NEGATIVE); METHADONE URINE SCREEN NEGATIVE (NEGATIVE); OPIATES URINE SCREEN NEGATIVE (NEGATIVE); PHENCYCLIDINE URINE SCREEN NEGATIVE (NEGATIVE)
[2018-10-21 07:37] LABS: CHLORIDE 109 mEq/L (98-107)
[2018-10-21 15:34] LABS: CREATINE KINASE 152 IU/L (39-308)
[2018-10-21 15:35] LABS: CREATINE KINASE MB FRACTION 2.8 ng/mL (0.5-3.6)
[2018-10-21 16:21] LABS: BG BASE EXCESS -0.2 mmol/L (-2.0-2.0); BG CARBOXYHEMOGLOBIN 0.3 % (0.5-1.5); BG DEOXYHEMOGLOBIN 2.7 % (0.0-5.0); BG FRACTION INSPIRED OXYGEN 21; BG HCO3 ACT 23.8 mmol/L (22.0-26.0); BG METHEMOGLOBIN 0.2 % (0.0-1.5); BG OXYGEN SATURATION 97.3 % (92.0-98.5); BG OXYHEMOGLOBIN 96.8 % (94.0-97.0); BG PCO2 36.5 mmHg (35.0-45.0); BG PH 7.432 (7.350-7.450); BG PO2 97.9 mmHg (75.0-100.0); BG SAMPLE SITE RIGHT BRACHIAL; BG TOTAL HEMOGLOBIN 10.6 g/dL (12.0-18.0); BG VENT MODE ROOM AIR
[2018-10-21 16:27] LABS: CHLORIDE 105 mEq/L (98-107)
[2018-10-21 16:36] LABS: BETA HYDROXYBUTYRATE 0.3 mMol/L (0.0-0.3)
[2018-10-21 23:17] LABS: CREATINE KINASE 130 IU/L (39-308)
[2018-10-21 23:18] LABS: CREATINE KINASE MB FRACTION 2.5 ng/mL (0.5-3.6)
[2018-10-22 05:42] LABS: BASOPHILS % 1.1 % (0.0-2.0); EOSINOPHILS % 0.8 % (0.0-5.0); HEMATOCRIT. 30.6 % (42.0-52.0); HEMOGLOBIN. 10.1 g/dL (14.0-18.0); LYMPHOCYTES % 46.4 % (20.0-50.0); MEAN CORPUSCULAR VOLUME 87.6 fL (80.0-94.0); MEAN PLATELET VOLUME 7.9 fl (7.4-10.4); NEUTROPHILS % 43.7 % (40.0-76.0); PLATELET 363 x1000/uL (130-400); RED BLOOD CELL COUNT 3.49 mill/uL (4.7-6.1); RED CELL DISTRIBUTION WIDTH 15.7 % (11.6-14.6)
[2018-10-22 05:50] LABS: CHLORIDE 106 mEq/L (98-107)
[2018-10-22 05:57] LABS: LDL CHOLESTEROL 67 mg/dL (5-100)
[2018-10-22 05:58] LABS: CREATINE KINASE 118 IU/L (39-308); HDL CHOLESTEROL 66 mg/dL (40-59)
[2018-10-22 05:59] LABS: CREATINE KINASE MB FRACTION 2.1 ng/mL (0.5-3.6)
[2018-10-22 06:20] VITALS: BP 109/71
== END ==
LOC: ER 20:28 → EDBEDREQ 10-21 00:07 → EDBEDREQTM 10-21 00:51 → EDBEDREQ 10-21 00:51 → EDBEDREQSVC 10-21 18:50 → ENRESERV 10-22 07:17
DX: E11.10 Type 2 diabetes mellitus with ketoacidosis without coma (principal); R45.851 Suicidal ideations; F14.10 Cocaine abuse, uncomplicated; I10 Essential (primary) hypertension; F10.20 Alcohol dependence, uncomplicated; Y90.0 Blood alcohol level of less than 20 mg/100 ml
CPT/HCPCS: 36415; 71045; 80307; 80320; 80329; 82010; 83880; 84484; 93005; 96365; 96372; 99291; G0480

== ENCOUNTER 2018-10-27 18:55 | Emergency (ER) | payer MEDICAID ==
[~2018-10-27] VITALS: Ht 177.8 cm; Wt 67.0 kg
[~2018-10-27 18:55] MED LIST changes: -ACETAMINOPHEN 325MG TABLET PO PRN; +ARIP10TA16 PO; -ARIPIPRAZOLE 10MG TABLET PO SCH; -ASPIRIN 81MG EC TABLET PO SCH; -ASPIRIN 81MG TABLET PO ONE; -BLOOD SUGAR DIAGNOSTIC STRIP TEST SCH; -CLONIDINE 0.1MG TABLET PO PRN; -DEXTROSE 50% WATER 50ML SYRINGE IV PRN; -DIPHENHYDRAMINE 50MG/ML VIAL IV PRN; -DOCUSATE SODIUM 100MG CAPSULE PO PRN; -ENOXAPARIN 40MG/0.4ML SYR SUBCUT NR; -ENOXAPARIN 40MG/0.4ML SYR SUBCUT SCH; +GABA800T97 PO; -GUAIFENESIN 200MG/10ML SUGAR FREE UDC PO PRN; -HYDROCODONE/ACETAMINOPHEN 5/325MG TABLET PO PRN; -INSULIN GLARGINE UD 100 UNITS/ML SYR SUBCUT SCH; -INSULIN LISPRO (HIGH DOSE) 100 UNITS/ML SUBCUT SCH; -INSULIN REGULAR (DRIP) 100 UNITS in SODIUM CHLORIDE 0.9% 100 ML IV SCH; -INSULIN REGULAR (DRIP) 100 UNITS in SODIUM CHLORIDE 0.9% 99 ML IV SCH; -IPRATROPIUM/ALBUTEROL 0.5-3(2.5)MG/3ML NEB NEB PRN; -LORAZEPAM 2MG/ML CPJ IV PRN; -MAGNESIUM/ALUMINUM HYDROXIDE/SIMETHICONE 30ML UDC PO PRN; +METF-816 PO; -MORPHINE SULFATE 2 MG/ML CPJ (NOT FOR IM USE) IV PRN; -NA PHOS,M-B/NA PHOS,DI-BA ENEMA 118ML PR PRN; -ONDANSETRON HCL 4MG/2ML INJ IV PRN; +QUET100T MT; -QUETIAPINE FUMARATE 50MG TABLET PO SCH; -SODIUM CHLORIDE 0.45% 1,000 ML IV SCH; -SODIUM CHLORIDE 0.9% 1,000 ML IV ONE
[2018-10-27] MEDS ORDERED: ASPIRIN 81MG TABLET PO ONE (23:15)
[2018-10-27 23:46] LABS: HEMATOCRIT. 36.1 % (42.0-52.0); HEMOGLOBIN. 11.8 g/dL (14.0-18.0); LYMPHOCYTES % 16.4 % (20.0-50.0); MEAN CORPUSCULAR HEMOGLOBIN 28.7 pg (28.0-32.0); MEAN CORPUSCULAR VOLUME 87.9 fL (80.0-94.0); MEAN PLATELET VOLUME 8.7 fl (7.4-10.4); MONOCYTES % 7.2 % (2.0-8.0); NEUTROPHILS % 75.4 % (40.0-76.0); PLATELET 431 x1000/uL (130-400); RED BLOOD CELL COUNT 4.11 mill/uL (4.7-6.1); RED CELL DISTRIBUTION WIDTH 15.9 % (11.6-14.6)
[2018-10-27 23:53] LABS: CHLORIDE 97 mEq/L (98-107)
[2018-10-27 23:58] LABS: ETHANOL BLOOD < 10 mg/dL
[2018-10-28 00:04] LABS: BETA HYDROXYBUTYRATE 0.9 mMol/L (0.0-0.3)
[2018-10-28] MEDS ORDERED: SODIUM CHLORIDE 0.9% 1000ML BAG (SEPSIS BOLUS) IV ONE (00:15)
[2018-10-28] MEDS ORDERED: INSULIN LISPRO 100 UNITS/ML SUBCUT ONE (00:15)
[2018-10-28 00:50] LABS: *AMPHETAMINES SCREEN URINE PRESUMTIVE POSITIVE (NEGATIVE); *BARBITURATES SCREEN URINE NEGATIVE (NEGATIVE); *BENZODIAZEPINES SCREEN URINE NEGATIVE (NEGATIVE); *COCAINE SCREEN URINE PRESUMTIVE POSITIVE (NEGATIVE)
[2018-10-28 00:51] LABS: CANNABINOID URINE SCREEN NEGATIVE (NEGATIVE); METHADONE URINE SCREEN NEGATIVE (NEGATIVE); OPIATES URINE SCREEN NEGATIVE (NEGATIVE); PHENCYCLIDINE URINE SCREEN NEGATIVE (NEGATIVE)
[2018-10-28] MEDS ORDERED: ACETAMINOPHEN 500MG TABLET PO ONE (11:00)
[2018-10-28 13:25] VITALS: BP 130/82
== END 2018-10-28 13:26 | disposition home or self-care (01) ==
LOC: ER 22:19
DX: F15.10 Other stimulant abuse, uncomplicated (principal); F14.10 Cocaine abuse, uncomplicated; F32.9 Major depressive disorder, single episode, unspecified; R45.851 Suicidal ideations; E11.65 Type 2 diabetes mellitus with hyperglycemia; I10 Essential (primary) hypertension; E87.2 Acidosis; F10.21 Alcohol dependence, in remission; Z79.4 Long term (current) use of insulin
CPT/HCPCS: 36415; 71045; 80053; 80305; 80307; 80320; 80329; 82010; 82962; 83605; 83690; 83880; 84484; 85025; 93005; 96372; 99284; J1815; J7030; Z7610; G0480

== ENCOUNTER 2018-11-08 22:37 | Inpatient (IN) | payer MEDICAID ==
[~2018-11-08] VITALS: Ht 193 cm; Wt 68.0 kg
[2018-11-09] VITALS (63 sets, daily range): BP systolic 122–181; BP diastolic 64–99
[2018-11-09] MEDS ORDERED: IBUPROFEN 600MG TABLET PO ONE
[2018-11-09] MEDS ORDERED: QUETIAPINE FUMARATE 50MG TABLET PO SCH
[2018-11-09 00:38] LABS: CLARITY URINE CLEAR (CLEAR); COLOR URINE YELLOW (YELLOW); KETONES URINE 4+ (NEGATIVE); LEUKOCYTE ESTERASE URINE NEGATIVE (NEGATIVE); NITRITE URINE NEGATIVE (NEGATIVE); OCCULT BLOOD URINE TRACE (NEGATIVE); PROTEIN URINE 1+ (NEGATIVE); UROBILINOGEN URINE 0.2 E.U./dL (0.2-1.0)
[2018-11-09 00:57] LABS: *AMPHETAMINES SCREEN URINE NEGATIVE (NEGATIVE); *BARBITURATES SCREEN URINE NEGATIVE (NEGATIVE); *BENZODIAZEPINES SCREEN URINE NEGATIVE (NEGATIVE); *COCAINE SCREEN URINE PRESUMTIVE POSITIVE (NEGATIVE); CANNABINOID URINE SCREEN NEGATIVE (NEGATIVE); METHADONE URINE SCREEN NEGATIVE (NEGATIVE); OPIATES URINE SCREEN NEGATIVE (NEGATIVE)
[2018-11-09 00:58] LABS: PHENCYCLIDINE URINE SCREEN NEGATIVE (NEGATIVE)
[2018-11-09 00:59] LABS: HEMATOCRIT. 45.4 % (42.0-52.0); HEMOGLOBIN. 12.9 g/dL (14.0-18.0); MEAN CORPUSCULAR HEMOGLOBIN 28.1 pg (28.0-32.0); MEAN CORPUSCULAR VOLUME 98.7 fL (80.0-94.0); PLATELET 355 x1000/uL (130-400)
[2018-11-09 01:00] LABS: BASOPHILS % 0.8 % (0.0-2.0); EOSINOPHILS % 0.2 % (0.0-5.0); MONOCYTES % 5.5 % (2.0-8.0); NEUTROPHILS % 82.5 % (40.0-76.0)
[2018-11-09 01:08] LABS: CHLORIDE 99 mEq/L (98-107)
[2018-11-09 01:15] LABS: ETHANOL BLOOD < 10 mg/dL
[2018-11-09] MEDS ORDERED: INSULIN REGULAR (DRIP) 100 UNITS in SODIUM CHLORIDE 0.9% 100 ML IV ONE ×2 (01:45→07:00)
[2018-11-09] MEDS ORDERED: SODIUM CHLORIDE 0.9% 1,000 ML IV ONE (01:45)
[2018-11-09] MEDS ORDERED: INSULIN REGULAR (DRIP) 100 UNITS in SODIUM CHLORIDE 0.9% 100 ML IV NR (02:15)
[2018-11-09] MEDS ORDERED: SODIUM BICARBONATE 8.4% 1 MEQ/ML 50ML SYR IV ONE (02:30)
[2018-11-09] MEDS ORDERED: ALBUTEROL (0.083%) 2.5MG/3ML NEB HHN ONE (02:30)
[2018-11-09] MEDS ORDERED: INSULIN REGULAR (HUMULIN R) UD 100 UNITS/ML SYR IV ONE (02:30)
[2018-11-09] MEDS ORDERED: LORAZEPAM 2MG/ML CPJ IV ONE (02:45)
[2018-11-09] MEDS: SODIUM CHLORIDE 0.45% 1,000 ML IV SCH ×2 (06:48→08:41)
[2018-11-09] MEDS ORDERED: IPRATROPIUM/ALBUTEROL 0.5-3(2.5)MG/3ML NEB HHN PRN (07:00)
[2018-11-09] MEDS ORDERED: ENOXAPARIN 40MG/0.4ML SYR SUBCUT SCH (07:00)
[2018-11-09] MEDS ORDERED: NA PHOS,M-B/NA PHOS,DI-BA ENEMA 118ML PR PRN (07:00)
[2018-11-09] MEDS ORDERED: ONDANSETRON HCL 4MG/2ML INJ IV PRN (07:00)
[2018-11-09] MEDS ORDERED: GUAIFENESIN 200MG/10ML SUGAR FREE UDC PO PRN (07:00)
[2018-11-09] MEDS ORDERED: DIPHENHYDRAMINE 50MG/ML VIAL IV PRN (07:00)
[2018-11-09] MEDS ORDERED: ACETAMINOPHEN 325MG TABLET PO PRN (07:00)
[2018-11-09] MEDS ORDERED: LORAZEPAM 2MG/ML CPJ IV PRN (07:00)
[2018-11-09] MEDS ORDERED: CLONIDINE 0.1MG TABLET PO PRN (07:00)
[2018-11-09] MEDS ORDERED: DOCUSATE SODIUM 100MG CAPSULE PO PRN (07:00)
[2018-11-09] MEDS ORDERED: HYDROCODONE/ACETAMINOPHEN 10/325MG TABLET PO PRN (07:00)
[2018-11-09] MEDS ORDERED: MAGNESIUM/ALUMINUM HYDROXIDE/SIMETHICONE 30ML UDC PO PRN (07:00)
[2018-11-09 07:20] LABS: BG BASE EXCESS -18.1 mmol/L (-2.0-2.0); BG CARBOXYHEMOGLOBIN 0.2 % (0.5-1.5); BG DEOXYHEMOGLOBIN 1.9 % (0.0-5.0); BG FRACTION INSPIRED OXYGEN 21; BG HCO3 ACT 6.9 mmol/L (22.0-26.0); BG METHEMOGLOBIN 0.4 % (0.0-1.5); BG OXYGEN SATURATION 98.1 % (92.0-98.5); BG OXYHEMOGLOBIN 97.5 % (94.0-97.0); BG PCO2 16.5 mmHg (35.0-45.0); BG PO2 106.9 mmHg (75.0-100.0); BG SAMPLE SITE RIGHT RADIAL; BG TOTAL HEMOGLOBIN 12.9 g/dL (12.0-18.0); BG VENT MODE ROOM AIR
[2018-11-09] MEDS: ASPIRIN 81MG EC TABLET PO SCH (08:42)
[2018-11-09] MEDS: ENOXAPARIN 40MG/0.4ML SYR SUBCUT SCH (08:48)
[2018-11-09] MEDS ORDERED: SODIUM BICARBONATE 8.4% 1 MEQ/ML 50ML SYR IV NR ×2 (09:00→09:30)
[2018-11-09] MEDS: BLOOD SUGAR DIAGNOSTIC STRIP TEST SCH ×13 (09:00→21:07)
[2018-11-09] MEDS ORDERED: INSULIN REGULAR (DRIP) 100 UNITS in SODIUM CHLORIDE 0.9% 99 ML IV SCH (09:01)
[2018-11-09] MEDS ORDERED: DEXTROSE 50% WATER 50ML SYRINGE IV PRN ×3 (09:15→22:15)
[2018-11-09] MEDS ORDERED: BLOOD SUGAR DIAGNOSTIC STRIP TEST SCH (09:15)
[2018-11-09 09:49] LABS: CHLORIDE 116 mEq/L (98-107)
[2018-11-09 10:11] LABS: PHOSPHORUS 2.1 mg/dL (2.5-4.9)
[2018-11-09 10:14] LABS: T4 FREE 1.03 ng/dL (0.76-1.46)
[2018-11-09] MEDS ORDERED: CALCIUM GLUCONATE 1,000 MG in DEXT 5% WATER 90 ML IV NR (10:30)
[2018-11-09] MEDS: NITROGLYCERIN 50MG PREMIX 250 ML IV PRN ×2 (12:43→21:12)
[2018-11-09] MEDS: SODIUM CHLORIDE 0.9% INJ 3ML FLUSH IVF SCH ×2 (13:09→22:00)
[2018-11-09] MEDS: LEVOFLOXACIN 500MG PREMIX 100 ML IV SCH (13:43)
[2018-11-09 15:58] LABS: CHLORIDE 115 mEq/L (98-107)
[2018-11-09 16:06] LABS: CREATINE KINASE 129 IU/L (39-308)
[2018-11-09 16:09] LABS: CREATINE KINASE MB FRACTION 3.4 ng/mL (0.5-3.6)
[2018-11-09] MEDS: DEXT 5%/0.45% NACL 1000ML 1,000 ML IV SCH (16:16)
[2018-11-09] MEDS: MORPHINE SULFATE 2 MG/ML CPJ (NOT FOR IM USE) IV PRN (20:09)
[2018-11-09 21:08] LABS: CHLORIDE 114 mEq/L (98-107)
[2018-11-09 23:52] LABS: CREATINE KINASE 102 IU/L (39-308)
[2018-11-09 23:53] LABS: CREATINE KINASE MB FRACTION 2.5 ng/mL (0.5-3.6)
[2018-11-10] VITALS (77 sets, daily range): BP systolic 114–189; BP diastolic 63–101
[2018-11-10 01:11] LABS: CHLORIDE 109 mEq/L (98-107)
[2018-11-10] MEDS: DEXT 5%/0.45% NACL 1000ML 1,000 ML IV SCH (02:21)
[2018-11-10 05:17] LABS: BASOPHILS % 0.5 % (0.0-2.0); HEMOGLOBIN. 10.3 g/dL (14.0-18.0); LYMPHOCYTES % 16.2 % (20.0-50.0); MEAN CORPUSCULAR HEMOGLOBIN 28.7 pg (28.0-32.0); MEAN CORPUSCULAR VOLUME 89.5 fL (80.0-94.0); MEAN PLATELET VOLUME 9.4 fl (7.4-10.4); MONOCYTES % 9.3 % (2.0-8.0); PLATELET 261 x1000/uL (130-400); RED BLOOD CELL COUNT 3.58 mill/uL (4.7-6.1); RED CELL DISTRIBUTION WIDTH 16.6 % (11.6-14.6)
[2018-11-10 05:24] LABS: CHLORIDE 105 mEq/L (98-107)
[2018-11-10] MEDS: NITROGLYCERIN 50MG PREMIX 250 ML IV PRN (05:45)
[2018-11-10] MEDS: SODIUM CHLORIDE 0.9% INJ 3ML FLUSH IVF SCH ×3 (06:12→22:15)
[2018-11-10] MEDS: BLOOD SUGAR DIAGNOSTIC STRIP TEST SCH ×4 (07:01→20:42)
[2018-11-10] MEDS: INSULIN LISPRO 100 UNITS/ML SUBCUT SCH ×4 (08:16→20:42)
[2018-11-10] MEDS: ENOXAPARIN 40MG/0.4ML SYR SUBCUT SCH (08:16)
[2018-11-10] MEDS: ASPIRIN 81MG EC TABLET PO SCH (08:17)
[2018-11-10] MEDS: SODIUM CHLORIDE 0.45% 1,000 ML IV SCH ×2 (08:17→22:16)
[2018-11-10] MEDS ORDERED: INSULIN LISPRO 100 UNITS/ML SUBCUT SCH (08:20)
[2018-11-10] MEDS ORDERED: INSULIN GLARGINE UD 100 UNITS/ML SYR SUBCUT SCH ×2 (10:00)
[2018-11-10] MEDS: HYDRALAZINE HCL 50MG TABLET PO SCH ×2 (10:21→20:46)
[2018-11-10 12:21] LABS: CHLORIDE 105 mEq/L (98-107)
[2018-11-10] MEDS: LEVOFLOXACIN 500MG PREMIX 100 ML IV SCH ×2 (13:30→13:32)
[2018-11-10] MEDS: GABAPENTIN 300MG CAPSULE PO SCH (18:37)
[2018-11-10 20:46] LABS: CHLORIDE 103 mEq/L (98-107)
[2018-11-11] VITALS (18 sets, daily range): BP systolic 107–159; BP diastolic 63–111
[2018-11-11 00:55] LABS: CHLORIDE 102 mEq/L (98-107)
[2018-11-11] MEDS: SODIUM CHLORIDE 0.9% INJ 3ML FLUSH IVF SCH ×3 (05:36→23:37)
[2018-11-11 05:50] LABS: BASOPHILS % 0.6 % (0.0-2.0); EOSINOPHILS % 0.7 % (0.0-5.0); HEMATOCRIT. 32.1 % (42.0-52.0); HEMOGLOBIN. 10.6 g/dL (14.0-18.0); LYMPHOCYTES % 32.6 % (20.0-50.0); MEAN CORPUSCULAR HEMOGLOBIN 28.7 pg (28.0-32.0); MEAN CORPUSCULAR VOLUME 87.1 fL (80.0-94.0); MEAN PLATELET VOLUME 9.4 fl (7.4-10.4); MONOCYTES % 8.2 % (2.0-8.0); NEUTROPHILS % 57.9 % (40.0-76.0); PLATELET 258 x1000/uL (130-400); RED BLOOD CELL COUNT 3.69 mill/uL (4.7-6.1); RED CELL DISTRIBUTION WIDTH 16.1 % (11.6-14.6)
[2018-11-11 06:30] LABS: CHLORIDE 101 mEq/L (98-107)
[2018-11-11 06:37] LABS: PHOSPHORUS 2.7 mg/dL (2.5-4.9)
[2018-11-11] MEDS: BLOOD SUGAR DIAGNOSTIC STRIP TEST SCH ×4 (07:50→20:49)
[2018-11-11] MEDS ORDERED: POTASSIUM CHLORIDE 20MEQ TABLET SR PO SCH (08:00)
[2018-11-11] MEDS: GABAPENTIN 300MG CAPSULE PO SCH ×2 (08:26→17:24)
[2018-11-11] MEDS: ENOXAPARIN 40MG/0.4ML SYR SUBCUT SCH (08:26)
[2018-11-11] MEDS: HYDRALAZINE HCL 50MG TABLET PO SCH ×2 (08:26→20:48)
[2018-11-11] MEDS: ASPIRIN 81MG EC TABLET PO SCH (08:26)
[2018-11-11] MEDS: INSULIN LISPRO 100 UNITS/ML SUBCUT SCH ×4 (08:27→20:49)
[2018-11-11] MEDS: INSULIN GLARGINE UD 100 UNITS/ML SYR SUBCUT SCH (10:20)
[2018-11-11] MEDS: SODIUM CHLORIDE 0.45% 1,000 ML IV SCH ×2 (10:21→23:36)
[2018-11-11] MEDS: MORPHINE SULFATE 2 MG/ML CPJ (NOT FOR IM USE) IV PRN ×2 (11:31→23:37)
[2018-11-11 12:36] LABS: CHLORIDE 103 mEq/L (98-107)
[2018-11-11 18:00] LABS: CHLORIDE 103 mEq/L (98-107)
[2018-11-12] VITALS: BP 115/76
[2018-11-12 04:00] VITALS: BP 109/69
[2018-11-12] MEDS: BLOOD SUGAR DIAGNOSTIC STRIP TEST SCH ×4 (06:29→21:29)
[2018-11-12] MEDS: SODIUM CHLORIDE 0.9% INJ 3ML FLUSH IVF SCH ×3 (06:33→22:57)
[2018-11-12] MEDS: INSULIN LISPRO 100 UNITS/ML SUBCUT SCH ×4 (06:40→21:29)
[2018-11-12 06:50] LABS: BASOPHILS % 0.9 % (0.0-2.0); EOSINOPHILS % 0.8 % (0.0-5.0); HEMATOCRIT. 30.6 % (42.0-52.0); HEMOGLOBIN. 10.2 g/dL (14.0-18.0); LYMPHOCYTES % 40.6 % (20.0-50.0); MEAN CORPUSCULAR HEMOGLOBIN 28.7 pg (28.0-32.0); MEAN CORPUSCULAR VOLUME 86.4 fL (80.0-94.0); MEAN PLATELET VOLUME 9.2 fl (7.4-10.4); NEUTROPHILS % 48.7 % (40.0-76.0); PLATELET 233 x1000/uL (130-400); RED BLOOD CELL COUNT 3.54 mill/uL (4.7-6.1)
[2018-11-12 07:41] LABS: CHLORIDE 104 mEq/L (98-107)
[2018-11-12 07:48] LABS: PHOSPHORUS 2.9 mg/dL (2.5-4.9)
[2018-11-12 08:00] VITALS: BP 120/77
[2018-11-12] MEDS ORDERED: POTASSIUM CHLORIDE 20MEQ TABLET SR PO SCH (10:00)
[2018-11-12] MEDS: ASPIRIN 81MG EC TABLET PO SCH (10:26)
[2018-11-12] MEDS: GABAPENTIN 300MG CAPSULE PO SCH ×2 (10:26→17:15)
[2018-11-12] MEDS: ENOXAPARIN 40MG/0.4ML SYR SUBCUT SCH (10:26)
[2018-11-12] MEDS: HYDRALAZINE HCL 50MG TABLET PO SCH ×2 (10:27→21:13)
[2018-11-12] MEDS: MORPHINE SULFATE 2 MG/ML CPJ (NOT FOR IM USE) IV PRN ×2 (10:28→21:14)
[2018-11-12] MEDS: INSULIN GLARGINE UD 100 UNITS/ML SYR SUBCUT SCH (10:38)
[2018-11-12] MEDS: SODIUM CHLORIDE 0.45% 1,000 ML IV SCH (14:17)
[2018-11-12] MEDS: LEVOFLOXACIN 500MG PREMIX 100 ML IV SCH (14:18)
[2018-11-12 16:23] VITALS: BP 111/64
[2018-11-12 20:00] VITALS: BP 107/69
[2018-11-13] VITALS: BP 108/72
[2018-11-13] MEDS: SODIUM CHLORIDE 0.45% 1,000 ML IV SCH (03:49)
[2018-11-13 04:00] VITALS: BP 122/74
[2018-11-13] MEDS: SODIUM CHLORIDE 0.9% INJ 3ML FLUSH IVF SCH (05:41)
[2018-11-13] MEDS: BLOOD SUGAR DIAGNOSTIC STRIP TEST SCH ×2 (06:30→11:50)
[2018-11-13] MEDS: INSULIN LISPRO 100 UNITS/ML SUBCUT SCH ×2 (06:53→12:27)
[2018-11-13 07:05] LABS: BASOPHILS % 0.8 % (0.0-2.0); EOSINOPHILS % 0.8 % (0.0-5.0); HEMATOCRIT. 31.7 % (42.0-52.0); HEMOGLOBIN. 10.3 g/dL (14.0-18.0); LYMPHOCYTES % 47.5 % (20.0-50.0); MEAN CORPUSCULAR HEMOGLOBIN 28.3 pg (28.0-32.0); MEAN CORPUSCULAR VOLUME 87.2 fL (80.0-94.0); MEAN PLATELET VOLUME 9.7 fl (7.4-10.4); MONOCYTES % 8.7 % (2.0-8.0); NEUTROPHILS % 42.2 % (40.0-76.0); PLATELET 233 x1000/uL (130-400); RED BLOOD CELL COUNT 3.63 mill/uL (4.7-6.1); RED CELL DISTRIBUTION WIDTH 16.1 % (11.6-14.6)
[2018-11-13 07:17] LABS: CHLORIDE 106 mEq/L (98-107)
[2018-11-13 08:00] VITALS: BP 127/88
[2018-11-13] MEDS: GABAPENTIN 300MG CAPSULE PO SCH (09:39)
[2018-11-13] MEDS: ASPIRIN 81MG EC TABLET PO SCH (09:39)
[2018-11-13] MEDS: HYDRALAZINE HCL 50MG TABLET PO SCH (09:39)
[2018-11-13] MEDS: ENOXAPARIN 40MG/0.4ML SYR SUBCUT SCH (09:39)
[2018-11-13] MEDS: INSULIN GLARGINE UD 100 UNITS/ML SYR SUBCUT SCH (09:45)
[2018-11-13 12:00] VITALS: BP 128/78
[2018-11-13 14:24] VITALS: BP 128/78
== END 2018-11-13 16:42 | disposition home or self-care (01) | DRG 420 ==
LOC: ER 22:37 → CVICU 11-09 01:55 → ENRESERV 11-09 07:14 → 8WST 11-11 16:48
PROVIDERS: ADMIT Internal Medicine; ATTEND Internal Medicine
DX: E11.10 Type 2 diabetes mellitus with ketoacidosis without coma (principal); G93.40 Encephalopathy, unspecified; R45.851 Suicidal ideations; R65.10 Systemic inflammatory response syndrome (SIRS) of non-infectious origin without acute organ dysfunction; E87.5 Hyperkalemia; Z78.1 Physical restraint status; F32.9 Major depressive disorder, single episode, unspecified; G89.29 Other chronic pain; I10 Essential (primary) hypertension; F14.10 Cocaine abuse, uncomplicated; Z68.1 Body mass index [BMI] 19.9 or less, adult; Z79.899 Other long term (current) drug therapy; Z79.4 Long term (current) use of insulin; Z79.84 Long term (current) use of oral hypoglycemic drugs
CPT/HCPCS: 36415; 36600; 71045; 80048; 80061; 80305; 80307; 80320; 80329; 81003; 82010; 82375; 82550; 82553; 82805; 82962; 83036; 83735; 83880; 84100; 84439; 84443; 84484; 85379; 93005; 94640; 99291; J0610; J1200; J1650; J1815; J1956; J2060; J2270; J3490; J7030; J7050; J7060; J7611; G0480

== ENCOUNTER 2019-01-10 18:00 | Inpatient (IN) | payer MEDICAID ==
[~2019-01-10] VITALS: Ht 177.8 cm; Wt 79.6 kg
[2019-01-10] MEDS ORDERED: SODIUM CHLORIDE 0.9% 1,000 ML IV ONE (20:23)
[2019-01-10 22:06] LABS: BASOPHILS % 0.8 % (0.0-2.0); EOSINOPHILS % 0.4 % (0.0-5.0); HEMATOCRIT. 45.5 % (42.0-52.0); HEMOGLOBIN. 12.5 g/dL (14.0-18.0); LYMPHOCYTES % 10.5 % (20.0-50.0); MEAN CORPUSCULAR HEMOGLOBIN 27.9 pg (28.0-32.0); MEAN CORPUSCULAR VOLUME 101.3 fL (80.0-94.0); MEAN PLATELET VOLUME 9.4 fl (7.4-10.4); MONOCYTES % 5.4 % (2.0-8.0); NEUTROPHILS % 82.9 % (40.0-76.0); PLATELET 335 x1000/uL (130-400); RED CELL DISTRIBUTION WIDTH 19.6 % (11.6-14.6)
[2019-01-10 22:12] LABS: CHLORIDE 102 mEq/L (98-107)
[2019-01-10 22:16] LABS: ETHANOL BLOOD < 10 mg/dL
[2019-01-10 22:20] LABS: CREATINE KINASE 218 IU/L (39-308)
[2019-01-10 22:21] LABS: BETA HYDROXYBUTYRATE 9.9 mMol/L (0.0-0.3)
[2019-01-10 22:23] LABS: CREATINE KINASE MB FRACTION 7.4 ng/mL (0.5-3.6)
[2019-01-10] MEDS ORDERED: PIPERACILLIN/TAZ 3.375G PREMIX 50 ML IV ONE (23:00)
[2019-01-10 23:02] LABS: *AMPHETAMINES SCREEN URINE NEGATIVE (NEGATIVE); CANNABINOID URINE SCREEN NEGATIVE (NEGATIVE); METHADONE URINE SCREEN NEGATIVE (NEGATIVE); OPIATES URINE SCREEN NEGATIVE (NEGATIVE); PHENCYCLIDINE URINE SCREEN NEGATIVE (NEGATIVE)
[2019-01-10 23:03] LABS: *BARBITURATES SCREEN URINE NEGATIVE (NEGATIVE); *BENZODIAZEPINES SCREEN URINE NEGATIVE (NEGATIVE); *COCAINE SCREEN URINE PRESUMTIVE POSITIVE (NEGATIVE)
[2019-01-10] MEDS ORDERED: HYDROCODONE/ACETAMINOPHEN 5/325MG TABLET PO PRN (23:30)
[2019-01-10] MEDS ORDERED: ENOXAPARIN 40MG/0.4ML SYR SUBCUT SCH (23:30)
[2019-01-10] MEDS ORDERED: INSULIN REGULAR (DRIP) 100 UNITS in SODIUM CHLORIDE 0.9% 100 ML IV SCH (23:30)
[2019-01-10] MEDS ORDERED: INSULIN REGULAR (DRIP) 100 UNITS in SODIUM CHLORIDE 0.9% 99 ML IV SCH (23:35)
[2019-01-10] MEDS: SODIUM CHLORIDE 0.9% 1,000 ML IV SCH (23:35)
[2019-01-10] MEDS ORDERED: AZITHROMYCIN 500 MG in DEXT 5% WATER 250 ML IV SCH (23:45)
[2019-01-11] VITALS (21 sets, daily range): BP systolic 158–182; BP diastolic 83–102
[2019-01-11 00:14] LABS: BG BASE EXCESS -31.6 mmol/L (-2.0-2.0); BG CARBOXYHEMOGLOBIN 0.4 % (0.5-1.5); BG DEOXYHEMOGLOBIN 2.2 % (0.0-5.0); BG FRACTION INSPIRED OXYGEN 21; BG HCO3 ACT 1.8 mmol/L (22.0-26.0); BG METHEMOGLOBIN 0.4 % (0.0-1.5); BG OXYGEN SATURATION 97.8 % (92.0-98.5); BG PCO2 11.4 mmHg (35.0-45.0); BG PH 6.807 (7.350-7.450); BG PO2 143.3 mmHg (75.0-100.0); BG SAMPLE SITE RIGHT RADIAL; BG TOTAL HEMOGLOBIN 13.2 g/dL (12.0-18.0); BG VENT MODE ROOM AIR
[2019-01-11] MEDS ORDERED: SODIUM BICARBONATE 8.4% 1 MEQ/ML 50ML SYR IV SCH ×2 (00:15→10:00)
[2019-01-11 04:01] LABS: CHLORIDE 97 mEq/L (98-107)
[2019-01-11 04:07] LABS: PHOSPHORUS 13.3 mg/dL (2.5-4.9)
[2019-01-11 04:11] LABS: CHLORIDE 99 mEq/L (98-107)
[2019-01-11 04:12] LABS: PHOSPHORUS 5.4 mg/dL (2.5-4.9)
[2019-01-11] MEDS: SODIUM CHLORIDE 0.9% 1,000 ML IV SCH ×4 (04:19→23:15)
[2019-01-11] MEDS: CEFTRIAXONE 1 G PREMIX 50 ML IV SCH (05:44)
[2019-01-11] MEDS: ENOXAPARIN 40MG/0.4ML SYR SUBCUT SCH (06:00)
[2019-01-11 06:14] LABS: BASOPHILS % 1.4 % (0.0-2.0); EOSINOPHILS % 0.1 % (0.0-5.0); HEMATOCRIT. 43.7 % (42.0-52.0); HEMOGLOBIN. 13.6 g/dL (14.0-18.0); MEAN CORPUSCULAR HEMOGLOBIN 28.1 pg (28.0-32.0); MEAN CORPUSCULAR VOLUME 90.5 fL (80.0-94.0); MEAN PLATELET VOLUME 9.6 fl (7.4-10.4); MONOCYTES % 3.1 % (2.0-8.0); NEUTROPHILS % 86.4 % (40.0-76.0); PLATELET 293 x1000/uL (130-400); RED BLOOD CELL COUNT 4.84 mill/uL (4.7-6.1)
[2019-01-11 06:31] LABS: PHOSPHORUS 3.5 mg/dL (2.5-4.9)
[2019-01-11] MEDS ORDERED: SODIUM CHLORIDE 0.9% 1,000 ML IV ONE ×3 (08:36)
[2019-01-11] MEDS ORDERED: SODIUM BICARBONATE 8.4% 1 MEQ/ML 50ML SYR IV ONE (08:45)
[2019-01-11] MEDS ORDERED: ETOMIDATE 2MG/ML 10ML VIAL IV ONE (08:45)
[2019-01-11] MEDS ORDERED: VECURONIUM BROMIDE 10 MG/VIAL IV ONE (08:45)
[2019-01-11] MEDS ORDERED: MIDAZOLAM HCL 50 MG in DEXTROSE 5% WATER 40 ML IV ONE (08:45)
[2019-01-11] MEDS: IPRATROPIUM BROMIDE (0.02%) 0.5MG/2.5ML NEB HHN SCH ×2 (09:15→20:24)
[2019-01-11] MEDS ORDERED: IPRATROPIUM BROMIDE (0.02%) 0.5MG/2.5ML NEB HHN PRN (09:15)
[2019-01-11 09:37] LABS: BG BASE EXCESS -12.6 mmol/L (-2.0-2.0); BG CARBOXYHEMOGLOBIN 0.5 % (0.5-1.5); BG DEOXYHEMOGLOBIN 0.4 % (0.0-5.0); BG FRACTION INSPIRED OXYGEN 100; BG HCO3 ACT 13.3 mmol/L (22.0-26.0); BG METHEMOGLOBIN 0.4 % (0.0-1.5); BG OXYGEN SATURATION 99.6 % (92.0-98.5); BG OXYHEMOGLOBIN 98.7 % (94.0-97.0); BG PCO2 30.9 mmHg (35.0-45.0); BG PH 7.251 (7.350-7.450); BG PO2 578.5 mmHg (75.0-100.0); BG SAMPLE SITE RIGHT RADIAL; BG TIDAL VOLUME(mL) 500 mL; BG TOTAL HEMOGLOBIN 12.6 g/dL (12.0-18.0); BG VENT MODE VENT - A/C; BG VENT RATE 24 set
[2019-01-11] MEDS: ONDANSETRON HCL 4MG/2ML INJ IV PRN (09:40)
[2019-01-11] MEDS: PROPOFOL 10MG/ML 100ML 100 ML IV PRN ×3 (09:41→19:58)
[2019-01-11] MEDS ORDERED: VECURONIUM BROMIDE 10 MG/VIAL IV NR (10:00)
[2019-01-11] MEDS ORDERED: DEXTROSE 50% WATER 50ML SYRINGE IV ONE (10:46)
[2019-01-11 11:28] LABS: HEMATOCRIT 35.7 % (42.0-52.0); HEMOGLOBIN 11.4 g/dL (14.0-18.0); MEAN CORPUSCULAR HEMOGLOBIN 27.8 pg (28.0-32.0); MEAN CORPUSCULAR VOLUME 86.7 fL (80.0-94.0); PLATELET 252 x1000/uL (130-400); RED BLOOD CELL COUNT 4.11 mill/uL (4.7-6.1); RED CELL DISTRIBUTION WIDTH 17.8 % (11.6-14.6)
[2019-01-11 11:35] LABS: CHLORIDE 126 mEq/L (98-107)
[2019-01-11 11:39] LABS: INR 1.2; PROTHROMBIN TIME 11.9 sec (9.6-11.0)
[2019-01-11 11:46] LABS: CREATINE KINASE 247 IU/L (39-308)
[2019-01-11 11:48] LABS: CREATINE KINASE MB FRACTION 8.8 ng/mL (0.5-3.6)
[2019-01-11] MEDS ORDERED: MIDAZOLAM HCL 50 MG in DEXTROSE 5% WATER 40 ML IV SCH (12:15)
[2019-01-11 14:17] LABS: CHLORIDE 123 mEq/L (98-107)
[2019-01-11 14:21] LABS: ETHANOL BLOOD < 10 mg/dL
[2019-01-11 14:25] LABS: BETA HYDROXYBUTYRATE 4.4 mMol/L (0.0-0.3)
[2019-01-11] MEDS ORDERED: INSULIN REGULAR (DRIP) 100 UNITS in SODIUM CHLORIDE 0.9% 99 ML IV SCH (16:48)
[2019-01-11] MEDS ORDERED: DEXTROSE 50% WATER 50ML SYRINGE IV PRN ×2 (17:00)
[2019-01-11] MEDS: BLOOD SUGAR DIAGNOSTIC STRIP TEST SCH ×7 (17:00→23:13)
[2019-01-11] MEDS: CLONIDINE 0.1MG TABLET PO PRN (17:58)
[2019-01-11] MEDS ORDERED: POTASSIUM CHLORIDE INJ 40 MEQ in DEXT 5% WATER 500 ML IV NR (19:00)
[2019-01-11] MEDS: MORPHINE SULFATE 2 MG/ML CPJ (NOT FOR IM USE) IV PRN (20:54)
[2019-01-11] MEDS ORDERED: AZITHROMYCIN 500 MG in DEXT 5% WATER 250 ML IV SCH (23:00)
[2019-01-12] VITALS (49 sets, daily range): BP systolic 96–181; BP diastolic 50–142
[2019-01-12] MEDS: BLOOD SUGAR DIAGNOSTIC STRIP TEST SCH ×15 (00:07→17:26)
[2019-01-12] MEDS: CLONIDINE 0.1MG TABLET PO PRN (00:18)
[2019-01-12] MEDS: PROPOFOL 10MG/ML 100ML 100 ML IV PRN ×2 (00:22→06:47)
[2019-01-12] MEDS: SODIUM CHLORIDE 0.9% 1,000 ML IV SCH (05:33)
[2019-01-12] MEDS: CEFTRIAXONE 1 G PREMIX 50 ML IV SCH (05:33)
[2019-01-12 05:55] LABS: BASOPHILS % 0.3 % (0.0-2.0); EOSINOPHILS % 0.2 % (0.0-5.0); HEMATOCRIT. 33.7 % (42.0-52.0); HEMOGLOBIN. 11.3 g/dL (14.0-18.0); LYMPHOCYTES % 14.5 % (20.0-50.0); MEAN CORPUSCULAR HEMOGLOBIN 28.2 pg (28.0-32.0); MEAN CORPUSCULAR VOLUME 84.5 fL (80.0-94.0); MEAN PLATELET VOLUME 8.5 fl (7.4-10.4); MONOCYTES % 7.4 % (2.0-8.0); NEUTROPHILS % 77.6 % (40.0-76.0); PLATELET 244 x1000/uL (130-400); RED BLOOD CELL COUNT 3.99 mill/uL (4.7-6.1); RED CELL DISTRIBUTION WIDTH 17.9 % (11.6-14.6)
[2019-01-12] MEDS: IPRATROPIUM BROMIDE (0.02%) 0.5MG/2.5ML NEB HHN SCH ×3 (08:06→20:50)
[2019-01-12] MEDS: ENOXAPARIN 40MG/0.4ML SYR SUBCUT SCH (08:19)
[2019-01-12] MEDS: PANTOPRAZOLE SODIUM 40 MG/VIAL IV SCH (08:19)
[2019-01-12] MEDS ORDERED: POTASSIUM CHLORIDE 20MEQ/PACKET PO SCH (10:45)
[2019-01-12 14:11] LABS: BG BASE EXCESS -6.8 mmol/L (-2.0-2.0); BG CARBOXYHEMOGLOBIN 0.6 % (0.5-1.5); BG FRACTION INSPIRED OXYGEN 40; BG METHEMOGLOBIN 0.3 % (0.0-1.5); BG OXYHEMOGLOBIN 98.1 % (94.0-97.0); BG PCO2 29.6 mmHg (35.0-45.0); BG PH 7.378 (7.350-7.450); BG PO2 176.4 mmHg (75.0-100.0); BG PRESSURE SUPPORT 8; BG SAMPLE SITE RIGHT RADIAL; BG TOTAL HEMOGLOBIN 13.4 g/dL (12.0-18.0); BG VENT MODE VENT - CPAP
[2019-01-12] MEDS ORDERED: DEXTROSE 50% WATER 50ML SYRINGE IV PRN ×2 (15:15→16:00)
[2019-01-12] MEDS ORDERED: HALOPERIDOL LACTATE 5MG/ML VIAL IM NR (15:15)
[2019-01-12] MEDS: LORAZEPAM 2MG/ML CPJ IV PRN ×2 (15:22→18:35)
[2019-01-12] MEDS: DEXT 5%/0.9% NACL 1,000 ML IV SCH (15:57)
[2019-01-12] MEDS ORDERED: BLOOD SUGAR DIAGNOSTIC STRIP TEST SCH (16:00)
[2019-01-12] MEDS: MORPHINE SULFATE 2 MG/ML CPJ (NOT FOR IM USE) IV PRN (16:24)
[2019-01-12] MEDS ORDERED: INSULIN LISPRO 100 UNITS/ML SUBCUT SCH (17:00)
[2019-01-12] MEDS: AZITHROMYCIN 500 MG in DEXT 5% WATER 250 ML IV SCH (17:46)
[2019-01-12] MEDS: INSULIN LISPRO 100 UNITS/ML SUBCUT SCH (17:47)
[2019-01-13] VITALS (53 sets, daily range): BP systolic 95–212; BP diastolic 59–134
[2019-01-13] MEDS: BLOOD SUGAR DIAGNOSTIC STRIP TEST SCH ×5 (00:18→23:25)
[2019-01-13] MEDS: INSULIN LISPRO 100 UNITS/ML SUBCUT SCH ×5 (00:23→23:30)
[2019-01-13] MEDS: IPRATROPIUM BROMIDE (0.02%) 0.5MG/2.5ML NEB HHN SCH ×4 (01:37→21:28)
[2019-01-13] MEDS: LORAZEPAM 2MG/ML CPJ IV PRN ×6 (02:34→21:00)
[2019-01-13] MEDS: MORPHINE SULFATE 2 MG/ML CPJ (NOT FOR IM USE) IV PRN ×2 (02:34→17:38)
[2019-01-13] MEDS: CEFTRIAXONE 1 G PREMIX 50 ML IV SCH (03:01)
[2019-01-13] MEDS: CLONIDINE 0.1MG TABLET PO PRN ×2 (04:05→14:42)
[2019-01-13] MEDS: ENOXAPARIN 40MG/0.4ML SYR SUBCUT SCH (09:37)
[2019-01-13] MEDS: PANTOPRAZOLE SODIUM 40 MG/VIAL IV SCH (09:37)
[2019-01-13] MEDS ORDERED: HALOPERIDOL LACTATE 5MG/ML VIAL IM NR (10:00)
[2019-01-13] MEDS ORDERED: DIPHENHYDRAMINE 50MG/ML VIAL IV NR (10:15)
[2019-01-13] MEDS: DEXT 5%/0.9% NACL 1,000 ML IV SCH (11:18)
[2019-01-13] MEDS: AZITHROMYCIN 500 MG in DEXT 5% WATER 250 ML IV SCH (17:38)
[2019-01-13] MEDS: QUETIAPINE FUMARATE 25MG TABLET PO SCH (20:46)
[2019-01-13] MEDS: ONDANSETRON HCL 4MG/2ML INJ IV PRN (21:00)
[2019-01-14] VITALS: BP 122/77
[2019-01-14] MEDS: LORAZEPAM 2MG/ML CPJ IV PRN ×4 (00:54→21:52)
[2019-01-14] MEDS: IPRATROPIUM BROMIDE (0.02%) 0.5MG/2.5ML NEB HHN SCH ×4 (02:12→21:48)
[2019-01-14] MEDS: CEFTRIAXONE 1 G PREMIX 50 ML IV SCH (03:32)
[2019-01-14 04:00] VITALS: BP 140/82
[2019-01-14] MEDS: MORPHINE SULFATE 2 MG/ML CPJ (NOT FOR IM USE) IV PRN (05:20)
[2019-01-14] MEDS: BLOOD SUGAR DIAGNOSTIC STRIP TEST SCH ×3 (06:00→18:13)
[2019-01-14 07:02] LABS: BASOPHILS % 0.6 % (0.0-2.0); EOSINOPHILS % 0.7 % (0.0-5.0); HEMATOCRIT. 35.3 % (42.0-52.0); HEMOGLOBIN. 11.4 g/dL (14.0-18.0); LYMPHOCYTES % 19.8 % (20.0-50.0); MEAN CORPUSCULAR HEMOGLOBIN 27.8 pg (28.0-32.0); MEAN CORPUSCULAR VOLUME 86.5 fL (80.0-94.0); MEAN PLATELET VOLUME 8.6 fl (7.4-10.4); MONOCYTES % 5.7 % (2.0-8.0); NEUTROPHILS % 73.2 % (40.0-76.0); PLATELET 191 x1000/uL (130-400); RED BLOOD CELL COUNT 4.08 mill/uL (4.7-6.1); RED CELL DISTRIBUTION WIDTH 18.6 % (11.6-14.6)
[2019-01-14 08:00] VITALS: BP 103/80
[2019-01-14] MEDS: PANTOPRAZOLE SODIUM 40 MG/VIAL IV SCH (09:30)
[2019-01-14] MEDS: QUETIAPINE FUMARATE 25MG TABLET PO SCH ×2 (09:30→20:32)
[2019-01-14] MEDS: ENOXAPARIN 40MG/0.4ML SYR SUBCUT SCH (09:30)
[2019-01-14] MEDS: DEXTROSE 5% WATER 1,000 ML IV SCH ×2 (09:31→18:25)
[2019-01-14] MEDS: INSULIN LISPRO 100 UNITS/ML SUBCUT SCH ×3 (11:28→18:23)
[2019-01-14 12:00] VITALS: BP 141/76
[2019-01-14 16:00] VITALS: BP 129/79
[2019-01-14] MEDS: AZITHROMYCIN 500 MG in DEXT 5% WATER 250 ML IV SCH (17:40)
[2019-01-14 20:00] VITALS: BP 144/90
[2019-01-15] VITALS: BP 143/86
[2019-01-15] MEDS: MORPHINE SULFATE 2 MG/ML CPJ (NOT FOR IM USE) IV PRN (00:44)
[2019-01-15] MEDS: BLOOD SUGAR DIAGNOSTIC STRIP TEST SCH ×5 (00:52→23:56)
[2019-01-15] MEDS: INSULIN LISPRO 100 UNITS/ML SUBCUT SCH ×4 (01:19→18:09)
[2019-01-15] MEDS: IPRATROPIUM BROMIDE (0.02%) 0.5MG/2.5ML NEB HHN SCH ×4 (01:27→21:48)
[2019-01-15] MEDS: CEFTRIAXONE 1 G PREMIX 50 ML IV SCH (03:11)
[2019-01-15] MEDS: LORAZEPAM 2MG/ML CPJ IV PRN ×2 (03:11→13:04)
[2019-01-15] MEDS: DEXTROSE 5% WATER 1,000 ML IV SCH ×2 (03:57→14:43)
[2019-01-15 04:00] VITALS: BP 149/78
[2019-01-15 08:00] VITALS: BP 152/68
[2019-01-15] MEDS: FAMOTIDINE 20MG/2ML VIAL IV SCH ×2 (09:13→21:32)
[2019-01-15] MEDS: ENOXAPARIN 40MG/0.4ML SYR SUBCUT SCH (09:13)
[2019-01-15] MEDS: QUETIAPINE FUMARATE 25MG TABLET PO SCH (09:13)
[2019-01-15 12:00] VITALS: BP 148/72
[2019-01-15] MEDS: CLONIDINE 0.1MG TABLET PO PRN ×2 (13:04→21:34)
[2019-01-15 16:00] VITALS: BP 138/85
[2019-01-15 16:56] LABS: CHLORIDE 129 mEq/L (98-107)
[2019-01-15] MEDS: AZITHROMYCIN 500 MG in DEXT 5% WATER 250 ML IV SCH (18:09)
[2019-01-15] MEDS ORDERED: LORAZEPAM 2MG/ML CPJ IV PRN (18:15)
[2019-01-15 20:00] VITALS: BP 174/94
[2019-01-15] MEDS: QUETIAPINE FUMARATE 50MG TABLET PO SCH (21:32)
[2019-01-16] VITALS: BP 141/84
[2019-01-16] MEDS: INSULIN LISPRO 100 UNITS/ML SUBCUT SCH ×4 (00:01→18:27)
[2019-01-16] MEDS: IPRATROPIUM BROMIDE (0.02%) 0.5MG/2.5ML NEB HHN SCH ×3 (02:11→20:24)
[2019-01-16] MEDS: CEFTRIAXONE 1 G PREMIX 50 ML IV SCH (02:42)
[2019-01-16] MEDS: DEXTROSE 5% WATER 1,000 ML IV SCH ×2 (02:42→10:23)
[2019-01-16 04:00] VITALS: BP 147/87
[2019-01-16] MEDS: BLOOD SUGAR DIAGNOSTIC STRIP TEST SCH ×3 (05:27→18:00)
[2019-01-16 07:07] LABS: CHLORIDE 124 mEq/L (98-107)
[2019-01-16 08:00] VITALS: BP 163/91
[2019-01-16] MEDS: QUETIAPINE FUMARATE 50MG TABLET PO SCH ×2 (08:17→21:34)
[2019-01-16] MEDS: FAMOTIDINE 20MG/2ML VIAL IV SCH ×2 (08:17→21:34)
[2019-01-16 08:19] LABS: BASOPHILS % 1.1 % (0.0-2.0); EOSINOPHILS % 3.4 % (0.0-5.0); HEMATOCRIT. 35.5 % (42.0-52.0); HEMOGLOBIN. 11.7 g/dL (14.0-18.0); LYMPHOCYTES % 25.9 % (20.0-50.0); MEAN CORPUSCULAR VOLUME 85.2 fL (80.0-94.0); MEAN PLATELET VOLUME 9.5 fl (7.4-10.4); MONOCYTES % 7.4 % (2.0-8.0); NEUTROPHILS % 62.2 % (40.0-76.0); PLATELET 225 x1000/uL (130-400); RED BLOOD CELL COUNT 4.17 mill/uL (4.7-6.1); RED CELL DISTRIBUTION WIDTH 18.2 % (11.6-14.6)
[2019-01-16] MEDS: ENOXAPARIN 40MG/0.4ML SYR SUBCUT SCH (08:19)
[2019-01-16] MEDS: INSULIN GLARGINE UD 100 UNITS/ML SYR SUBCUT SCH ×2 (10:22→22:49)
[2019-01-16 12:00] VITALS: BP 166/78
[2019-01-16] MEDS: CLONIDINE 0.1MG TABLET PO PRN (12:06)
[2019-01-16 16:00] VITALS: BP 137/84
[2019-01-16] MEDS: AZITHROMYCIN 500 MG in DEXT 5% WATER 250 ML IV SCH (17:05)
[2019-01-16 20:00] VITALS: BP 146/88
[2019-01-16] MEDS: AMLODIPINE 5MG TABLET PO SCH (21:33)
[2019-01-17] VITALS: BP 160/85
[2019-01-17] MEDS: BLOOD SUGAR DIAGNOSTIC STRIP TEST SCH ×4 (00:28→23:57)
[2019-01-17] MEDS: LORAZEPAM 2MG/ML CPJ IM PRN (01:12)
[2019-01-17] MEDS: INSULIN LISPRO 100 UNITS/ML SUBCUT SCH ×4 (01:24→18:26)
[2019-01-17] MEDS: IPRATROPIUM BROMIDE (0.02%) 0.5MG/2.5ML NEB HHN SCH ×4 (01:28→22:03)
[2019-01-17] MEDS ORDERED: POTASSIUM CHLORIDE 20MEQ TABLET SR PO SCH (03:30)
[2019-01-17 04:00] VITALS: BP 153/85
[2019-01-17 06:33] LABS: BASOPHILS % 1.1 % (0.0-2.0); EOSINOPHILS % 2.3 % (0.0-5.0); HEMATOCRIT. 33.2 % (42.0-52.0); HEMOGLOBIN. 10.8 g/dL (14.0-18.0); LYMPHOCYTES % 27.9 % (20.0-50.0); MEAN CORPUSCULAR HEMOGLOBIN 27.8 pg (28.0-32.0); MEAN CORPUSCULAR VOLUME 85.7 fL (80.0-94.0); MEAN PLATELET VOLUME 10.2 fl (7.4-10.4); MONOCYTES % 8.3 % (2.0-8.0); NEUTROPHILS % 60.4 % (40.0-76.0); PLATELET 200 x1000/uL (130-400); RED BLOOD CELL COUNT 3.88 mill/uL (4.7-6.1); RED CELL DISTRIBUTION WIDTH 17.8 % (11.6-14.6)
[2019-01-17 07:24] LABS: CHLORIDE 119 mEq/L (98-107)
[2019-01-17 08:00] VITALS: BP 147/83
[2019-01-17] MEDS: ENOXAPARIN 40MG/0.4ML SYR SUBCUT SCH (08:21)
[2019-01-17] MEDS: QUETIAPINE FUMARATE 50MG TABLET PO SCH ×2 (08:21→21:47)
[2019-01-17] MEDS: AMLODIPINE 5MG TABLET PO SCH ×2 (08:22→21:47)
[2019-01-17] MEDS ORDERED: POTASSIUM CHLORIDE 20MEQ TABLET SR PO NR ×2 (09:00→13:00)
[2019-01-17] MEDS: INSULIN GLARGINE UD 100 UNITS/ML SYR SUBCUT SCH ×2 (10:19→21:50)
[2019-01-17 12:00] VITALS: BP 146/85
[2019-01-17 16:00] VITALS: BP 120/70
[2019-01-17 20:00] VITALS: BP 152/90
[2019-01-18] MEDS: INSULIN LISPRO 100 UNITS/ML SUBCUT SCH ×4 (00:13→18:00)
[2019-01-18] MEDS: IPRATROPIUM BROMIDE (0.02%) 0.5MG/2.5ML NEB HHN SCH ×4 (02:46→21:43)
[2019-01-18 04:00] VITALS: BP 138/75
[2019-01-18] MEDS: BLOOD SUGAR DIAGNOSTIC STRIP TEST SCH ×3 (05:33→18:16)
[2019-01-18 07:44] LABS: CHLORIDE 111 mEq/L (98-107)
[2019-01-18 08:00] VITALS: BP 138/74
[2019-01-18] MEDS ORDERED: POTASSIUM CHLORIDE 20MEQ TABLET SR PO NR (08:30)
[2019-01-18] MEDS: QUETIAPINE FUMARATE 50MG TABLET PO SCH ×2 (08:30→21:25)
[2019-01-18] MEDS: AMLODIPINE 5MG TABLET PO SCH ×2 (08:32→21:25)
[2019-01-18] MEDS: ENOXAPARIN 40MG/0.4ML SYR SUBCUT SCH (08:33)
[2019-01-18] MEDS: INSULIN GLARGINE UD 100 UNITS/ML SYR SUBCUT SCH ×2 (10:13→21:32)
[2019-01-18 12:00] VITALS: BP 133/76
[2019-01-18] MEDS: LORAZEPAM 2MG/ML CPJ IM PRN (14:53)
[2019-01-18 16:00] VITALS: BP 147/96
[2019-01-18] MEDS: CLONIDINE 0.1MG TABLET PO PRN (16:41)
[2019-01-18 20:00] VITALS: BP 130/73
[2019-01-18 21:49] VITALS: BP 130/73
[2019-01-19] VITALS: BP 124/80
[2019-01-19] MEDS: IPRATROPIUM BROMIDE (0.02%) 0.5MG/2.5ML NEB HHN SCH ×3 (03:15→13:28)
[2019-01-19 04:00] VITALS: BP 130/81
[2019-01-19 05:27] VITALS: BP 130/81
[2019-01-19 08:00] VITALS: BP 132/87
[2019-01-19] MEDS: AMLODIPINE 5MG TABLET PO SCH (08:32)
[2019-01-19] MEDS: QUETIAPINE FUMARATE 50MG TABLET PO SCH (08:33)
[2019-01-19] MEDS: ENOXAPARIN 40MG/0.4ML SYR SUBCUT SCH (08:33)
[2019-01-19] MEDS: INSULIN LISPRO 100 UNITS/ML SUBCUT SCH ×2 (08:34→11:57)
[2019-01-19] MEDS: INSULIN GLARGINE UD 100 UNITS/ML SYR SUBCUT SCH (09:16)
[2019-01-19] MEDS: BLOOD SUGAR DIAGNOSTIC STRIP TEST SCH (11:57)
[2019-01-19 14:02] VITALS: BP 132/87
== END 2019-01-19 15:29 | disposition home or self-care (01) | DRG 469 ==
LOC: ER 18:00 → MICUSO 01-11 00:44 → ENRESERV 01-11 15:35 → 6EST 01-14 00:47
PROVIDERS: ADMIT Internal Medicine Nephrology; ATTEND Internal Medicine Nephrology
PROC: 5A1945Z Respiratory Ventilation, 24-96 Consecutive Hours (ICD-10-PCS; principal; 2019-01-11)
PROC: 0BH17EZ Insertion of Endotracheal Airway into Trachea, Via Natural or Artificial Opening (ICD-10-PCS; 2019-01-11)
PROC: 06HY33Z Insertion of Infusion Device into Lower Vein, Percutaneous Approach (ICD-10-PCS; 2019-01-11)
PROC: B54CZZA Ultrasonography of Left Lower Extremity Veins, Guidance (ICD-10-PCS; 2019-01-11)
DX: N17.9 Acute kidney failure, unspecified (principal); J96.00 Acute respiratory failure, unspecified whether with hypoxia or hypercapnia; G93.41 Metabolic encephalopathy; E11.10 Type 2 diabetes mellitus with ketoacidosis without coma; E87.1 Hypo-osmolality and hyponatremia; I12.9 Hypertensive chronic kidney disease with stage 1 through stage 4 chronic kidney disease, or unspecified chronic kidney disease; F14.10 Cocaine abuse, uncomplicated; F32.9 Major depressive disorder, single episode, unspecified; N18.9 Chronic kidney disease, unspecified; E83.39 Other disorders of phosphorus metabolism; E87.5 Hyperkalemia; E87.0 Hyperosmolality and hypernatremia; D72.829 Elevated white blood cell count, unspecified; E44.1 Mild protein-calorie malnutrition; E87.6 Hypokalemia; Z59.0 Homelessness; Z91.19 Patient's noncompliance with other medical treatment and regimen; Z91.5 Personal history of self-harm; Z78.1 Physical restraint status; Z68.25 Body mass index [BMI] 25.0-25.9, adult
CPT/HCPCS: 36415; 36600; 71045; 80048; 80305; 80320; 82010; 82375; 82550; 82553; 82805; 82962; 83036; 83605; 83735; 83880; 84100; 84145; 84443; 84484; 85027; 86703; 92610; 93005; 94002; 94640; 96365; 97116; 97162; 97166; 99285; C9113; J0456; J0696; J1200; J1630; J1650; J1815; J2060; J2250; J2270; J2405; J2543; J2704; J3480; J3490; J7030; J7042; J7050; J7060; J7070; A4315; G0480